=== PATIENT | male | born 1950 | race African-American/Black ===

== ENCOUNTER 2016-12-10 09:23 | Emergency (ER) | payer BC, MEDICARE, OTHER ==
[~2016-12-10] VITALS: Ht 185.4 cm; Wt 96.6 kg
[~2016-12-10 09:23] MED LIST: AMLO1TAB95 PO; ASPI-482 PO; ATOR20TA58 PO; FISH1CAP PO; SAXA1TBM3 PO
[2016-12-10 09:36] VITALS: BP 150/88
--- NOTE | 2016-12-10 10:09 | PHYS DOC ---
Past Medical History Past Medical History: Diabetes-Type II, High Cholesterol, Hypertension, Other Additional Past Medical Histor: back pain Past Surgical History: Other Additional Past Surgical Histo: prostate Alcohol Use: Occasionally Drug Use: None Adult General Chief Complaint Chief Complaint: FINGER INJURY HPI HPI Patient is a 66 year old male who presents with pain to his middle finger. Patient states that his pain has been present for the past 3 days. Patient states that he was carrying groceries and felt his middle finger been back slightly resulting in a pop. Patient states that since the injury he has been noticing a popping sensation in his middle finger. Patient states that he has been able to flex the finger and extend it. Patient has noticed swelling to the finger. Patient denies any other injuries. Patient states at rest he has no pain , however with movement his pain gets up to 9 out of 10. Review of Systems Review of Systems Constitutional: Denies fever or chills [] HENT: Denies nasal congestion or sore throat [] Respiratory: Denies cough or shortness of breath [] Musculoskeletal: Middle finger pain [] Integument: Denies rash or skin lesions [] Neurologic: Denies headache, focal weakness or sensory changes [] Allergies Allergies Allergies Coded Allergies Type Severity Reaction Last Updated Verified No Known Drug Allergies 03/12/15 No Physical Exam Physical Exam Constitutional: Well developed, well nourished, no acute distress, non-toxic appearance. [] HENT: Normocephalic, atraumatic, bilateral external ears normal, oropharynx moist, no oral exudates, nose normal. [] Lungs & Thorax: Bilateral breath sounds clear to auscultation [] Skin: Warm, dry, no erythema, no rash. [] Extremities: Moderate soft tissue swelling to right middle finger, tenderness palpation over 3rd PIP joint, full range of motion present, capillary refill less than 2 seconds, sensation intact. [] Neurologic: Alert and oriented X 3, normal motor function, normal sensory function, no focal deficits noted. [] Current Patient Data Vital Signs Vital Signs Date Time Temp Pulse Resp B/P Pulse Ox O2 Delivery O2 Flow Rate FiO2 12/10/16 09:36 97.7 86 18 96 Room Air 97.7 EKG EKG Not performed [] Radiology/Procedures Radiology/Procedures [facility] [address] [place], [place] [id number] IMAGING REPORT Signed PATIENT: DANIEL PAULSON ACCOUNT: [id number] : 1950 LOCATION: ER AGE: 66 SEX: M EXAM STATUS: PRE ER ORD. PHYSICIAN: OXANA KRISHNAMURTHY MD REASON: middle finger injury to right hand PROCEDURE: FINGER(S) RIGHT EXAM: Right third finger, 3 views. HISTORY: Pain and limited mobility. COMPARISON: None. FINDINGS: Frontal, lateral and oblique views of the right lung finger are obtained. There is no fracture, dislocation or subluxation. There is suggestion of soft tissue swelling surrounding the third proximal interphalangeal joint. IMPRESSION: Suggestion of soft tissue swelling surrounding the third proximal individual joint. DICTATED and SIGNED BY: JULIO CÉSAR WHITFIELD MD DATE: 12/10/16 1017 CC: OXANA KRISHNAMURTHY MD; FADIA CARTER MD ~ [] Course & Med Decision Making Course & Med Decision Making Pertinent Labs and Imaging studies reviewed. (See chart for details) Patient's x-rays did not reveal evidence of fracture. The patient's symptoms are consistent with third digit sprain. Recommended use of Tylenol and naproxen [id number] for treatment of symptoms. Encourage range of motion as tolerated and cold compresses as needed for swelling. Advised follow-up with primary doctor in the next 7 days of symptoms are not improving. Patient voiced understanding and in agreement with treatment plan. Dragon Disclaimer Dragon Disclaimer This electronic medical record was generated, in whole or in part, using a voice recognition dictation system. Departure Departure Impression: Primary Impression: Sprain of finger, right Disposition: 01 HOME, SELF-CARE Condition: IMPROVED Referrals: FADIA CARTER MD (PCP) Patient Instructions: Finger Sprain Additional Instructions: Use [id number] Tylenol and naproxen as directed on labeling. Follow-up with your primary doctor in 7 days of symptoms are not improving. Return to the emergency department for any worsening symptoms. Problem Qualifiers Primary Impression: Sprain of finger, right Encounter type: initial encounter Qualified Code: S63.619A - Unspecified sprain of unspecified finger, initial encounter OXANA KRISHNAMURTHY MD Dec 10, 2016 10:09
--- NOTE | 2016-12-10 10:21 | RAD ---
EXAM: Right third finger, 3 views. HISTORY: Pain and limited mobility. COMPARISON: None. FINDINGS: Frontal, lateral and oblique views of the right lung finger are obtained. There is no fracture, dislocation or subluxation. There is suggestion of soft tissue swelling surrounding the third proximal interphalangeal joint. IMPRESSION: Suggestion of soft tissue swelling surrounding the third proximal individual joint.
== END 2016-12-10 10:44 | disposition home or self-care (01) ==
LOC: ER 09:23
DX: S63.612A Unspecified sprain of right middle finger, initial encounter (principal); E11.9 Type 2 diabetes mellitus without complications; E78.00 Pure hypercholesterolemia, unspecified; I10 Essential (primary) hypertension; X58.XXXA Exposure to other specified factors, initial encounter; Y93.89 Activity, other specified; Y92.89 Other specified places as the place of occurrence of the external cause; Y99.8 Other external cause status
CPT/HCPCS: 73140; 99284

== ENCOUNTER 2020-11-30 15:38 | Inpatient (IN) | payer MEDICARE ==
[~2020-11-30] VITALS: Ht 185.4 cm; Wt 101.8 kg
--- NOTE | 2020-11-30 16:00 | PHYS DOC ---
Past Medical History Past Medical History: Diabetes-Type II, GERD, High Cholesterol, Hypertension, Other Additional Past Medical Histor: back pain Past Surgical History: Other Additional Past Surgical Histo: prostate Smoking Status: Never Smoker Alcohol Use: Occasionally Drug Use: None General Adult EDM: Chief Complaint: COUGH HPI: HPI: Patient is a 70 year old man with history of diabetes type 2, hypertension, high cholesterol, acid reflux, who presents to the ED today complaining of cough for 1 month and diarrhea for 5 days. Patient denies any fever but reports the and grandson tested positive for COVID-19 recently. Denies any shortness of breath but appears short of air on arrival to the ED. Denies any chest pain. Review of Systems: Review of Systems: Constitutional: Denies fever or chills. [] Eyes: Denies change in visual acuity. [] HENT: Denies nasal congestion or sore throat. [] Respiratory: Reports cough, denies shortness of breath. [] Cardiovascular: Denies chest pain or edema. [] GI: Reports diarrhea. Denies abdominal pain, nausea, vomiting, bloody stools : Denies dysuria. [] Musculoskeletal: Denies back pain or joint pain. [] Integument: Denies rash. [] Neurologic: Denies headache, focal weakness or sensory changes. [] Endocrine: Denies polyuria or polydipsia. [] Lymphatic: Denies swollen glands. [] Psychiatric: Denies depression or anxiety. [] Heart Score: Risk Factors: Risk Factors: DM, Current or recent (<one month) smoker, HTN, HLP, family history of CAD, obesity. Risk Scores: Score 0 - 3: 2.5% MACE over next 6 weeks - Discharge Home Score 4 - 6: 20.3% MACE over next 6 weeks - Admit for Clinical Observation Score 7 - 10: 72.7% MACE over next 6 weeks - Early Invasive Strategies Allergies: Allergies: Allergies Coded Allergies Type Severity Reaction Last Updated Verified No Known Drug Allergies 03/12/15 No Physical Exam: PE: Constitutional: Well developed, well nourished, no acute distress, non-toxic appearance. [] HENT: Normocephalic, atraumatic, bilateral external ears normal, oropharynx moist, no oral exudates, nose normal. [] Eyes: PERRLA, EOMI, conjunctiva normal, no discharge. [] Neck: Normal range of motion, no tenderness, supple, no stridor. [] Cardiovascular:Heart rate regular rhythm, no murmur [] Lungs & Thorax: Patient is short of air, was put on oxygen. Diminished lung sounds serially. Abdomen: Bowel sounds normal, soft, no tenderness, no masses, no pulsatile melida s. [] Skin: Warm, dry, no erythema, no rash. [] Back: No tenderness, no CVA tenderness. [] Extremities: No tenderness, no cyanosis, no clubbing, ROM intact, no edema. [] Neurologic: Alert and oriented X 3, normal motor function, normal sensory function, no focal deficits noted. [] Psychologic: Affect normal, judgement normal, mood normal. [] EKG: EKG: [] Radiology/Procedures: Radiology/Procedures: []PROCEDURE: PORTABLE CHEST 1V EXAM: Chest, single view. HISTORY: Cough. COMPARISON: None. FINDINGS: A frontal view of the chest is obtained. There is diffuse interstitial infiltrate likely superimposed on chronic interstitial changes. No protrusion or pneumothorax is seen. There is a prominent cardiac silhouette. There are calcified granulomas. IMPRESSION: Diffuse interstitial infiltrate likely superimposed on chronic interstitial changes. Electronically signed by: Sarah Whitfield MD (11/30/2020 4:27 PM) [id number] DICTATED and SIGNED BY: SARAH WHITFIELD MD DATE: 11/30/20 [id number] Course & Med Decision Making: Course & Med Decision Making Pertinent Labs and Imaging studies reviewed. (See chart for details) This is a 70-year-old male patient presenting to the ED today with cough for 1 month and diarrhea for 5 days. Has been exposed to COVID-19, the is positive as well as the grandson. Patient arrives in the ED with O2 sats at 85% on room air, he was put on oxygen 2 L with no improvement put on oxygen 4 L with oxygen now at 92%. Temperature 98.1, heart rate 92, blood pressure 127/83, respiration 26 CBC with no acute findings, CMP with creatinine of 2.0, BUN is normal. Chest x-ray interpreted by radiologist was noted for diffuse interstitial infiltrate likely superimposed on chronic interstitial changes. Patient was tested for COVID-19 Patient was given Decadron, Rocephin, and azithromycin. Spoke to Dr. Dela Cruz who accepted patient for admission. Routine consult placed for pulmonary Dragon Disclaimer: Alo Disclaimer: This electronic medical record was generated, in whole or in part, using a voice recognition dictation system. Departure Departure Impression: Primary Impression: Pneumonia of both lower lobes Qualified Codes: J18.9 - Pneumonia, unspecified organism Additional Impressions: Acute respiratory failure Qualified Codes: J96.01 - Acute respiratory failure with hypoxia Person under investigation for COVID-19 Diarrhea Qualified Codes: R19.7 - Diarrhea, unspecified Acute renal failure Qualified Codes: N17.9 - Acute kidney failure, unspecified Disposition: 09 ADMITTED INPT THIS HOSP Condition: STABLE Referrals: FADIA CARTER MD (PCP) MEGAN DE LA ROSA APRN Nov 30, 2020 16:00
[2020-11-30 16:17] LABS: BASO # 0.1 x10^3/uL (0.0-0.2); BASO % 1 % (0-3); EOS % 0 % (0-3); HEMOGLOBIN 14.1 g/dL (13.0-17.5); LYMPH # 1.5 x10^3/uL (1.0-4.8); LYMPH % 27 % (24-48); MEAN CORPUSCULAR HEMOGLOBIN 27 pg (25-35); MEAN CORPUSCULAR HGB CONC 34 g/dL (31-37); MEAN CORPUSCULAR VOLUME 82 fL (79-100); MONO # 0.7 x10^3/uL (0.0-1.1); MONO % 13 % (0-9); NEUT # 3.3 x10^3/uL (1.8-7.7); NEUT % 59 % (31-73); PLATELET COUNT 241 x10^3/uL (140-400); RED BLOOD COUNT 5.14 x10^6/uL (4.30-5.70); RED CELL DISTRIBUTION WIDTH 14.6 % (11.5-14.5); WHITE BLOOD COUNT 5.7 x10^3/uL (4.0-11.0)
[2020-11-30 16:27] LABS: CALCIUM 8.6 mg/dL (8.5-10.1); GFR 39.9; POTASSIUM 3.4 mmol/L (3.5-5.1)
--- NOTE | 2020-11-30 16:29 | RAD ---
EXAM: Chest, single view. HISTORY: Cough. COMPARISON: None. FINDINGS: A frontal view of the chest is obtained. There is diffuse interstitial infiltrate likely weinstein perimposed on chronic interstitial changes. No protrusion or pneumothorax is seen. There is a promine nt cardiac silhouette. There are calcified granulomas. IMPRESSION: Diffuse interstitial infiltrate likely superimposed on chronic interstitial changes. Electronically signed by: Sarah Santo MD (11/30/2020 4:27 PM) [id number]
[2020-11-30 16:32] LABS: ALBUMIN 2.5 g/dL (3.4-5.0); ALBUMIN/GLOBULIN RATIO 0.5 (1.0-1.7); MAGNESIUM 2.4 mg/dL (1.8-2.4); TOTAL BILIRUBIN 0.4 mg/dL (0.2-1.0); TOTAL PROTEIN 7.3 g/dL (6.4-8.2)
[2020-11-30] MEDS ORDERED: DEXAMETHASONE SOD PHOS 20 MG/5 ML VIAL. IV ONE (17:45)
[2020-11-30] MEDS ORDERED: AZITHRMYCN 500MG IVPB FOR OMNI 250 ML IV ONE (17:45)
[2020-11-30] MEDS ORDERED: cefTRIAXone IV Push 1 GM VIAL. IVP ONE (17:45)
[2020-11-30] MEDS ORDERED: DOCUSATE SODIUM 100 MG CAPSULE. PO PRN (22:00)
[2020-11-30] MEDS ORDERED: ACETAMINOPHEN 325 MG TABLET. PO PRN ×2 (22:00→23:15)
[2020-11-30] MEDS ORDERED: DEXTROSE 50% 25 GM / 50ML DISP.SYRIN. IV PRN (22:00)
[2020-11-30] MEDS ORDERED: ONDANSETRON PF 4 MG/2 ML VIAL. IV PRN ×2 (22:00→23:15)
[2020-11-30] MEDS: HEPARIN for SUB-Q USE 5,000 UNIT/ML VIAL. SQ SCH (22:33)
[2020-11-30] MEDS: guaiFENesin DM 200MG/20MG 10 ML SYRUP PO PRN (22:42)
[2020-11-30] MEDS ORDERED: INSULIN GLARGINE SYRINGE. SQ SCH (23:00)
[2020-11-30] MEDS ORDERED: MORPHINE SULFATE 2 MG/ML VIAL. IV PRN (23:15)
[2020-11-30 23:50] LABS: BILIRUBIN,URINE NEGATIVE (NEG); CLARITY,URINE CLEAR; COLOR,URINE YELLOW; NITRITE,URINE NEGATIVE (NEG); PROTEIN,URINE >=300 mg/dL (NEG-TRACE); UROBILINOGEN,URINE 0.2 mg/dL (0.2 mg/dL)
[2020-11-30 23:56] LABS: AMPHETAMINE/METHAMPHETAMINE NEG (NEG); BARBITURATES NEG (NEG); BENZODIAZEPINES NEG (NEG); CANNABINOIDS NEG (NEG); COCAINE NEG (NEG); METHADONE NEG (NEG); OPIATES NEG (NEG); PHENCYCLIDINE NEG (NEG)
[2020-12-01] VITALS (7 sets, daily range): BP systolic 104–143; BP diastolic 59–84
[2020-12-01 00:08] LABS: BACTERIA,URINE 0 /HPF (0-FEW); HYALINE CASTS, URINE FEW /HPF; RBC,URINE OCC /HPF (0-2); WBC,URINE OCC /HPF (0-4)
[2020-12-01] MEDS ORDERED: LATA2.5D2 EACHEYE (03:43)
[2020-12-01] MEDS ORDERED: FAMO40TA4 PO (03:43)
[2020-12-01] MEDS ORDERED: PHEN1CAP PO (03:43)
[2020-12-01] MEDS ORDERED: FLUT16SP NS (03:43)
[2020-12-01] MEDS ORDERED: BENZ-8 PO (03:43)
[2020-12-01] MEDS ORDERED: VENTOLIN HFA18 GM INH (03:43)
[2020-12-01] MEDS ORDERED: AMLO-187 PO (03:43)
[2020-12-01] MEDS ORDERED: LOSA100T14 PO (03:43)
[2020-12-01] MEDS ORDERED: PIOG15TA42 PO (03:43)
[2020-12-01] MEDS ORDERED: C.DIFF MED SCREEN BY RX. MC ONE (04:15)
--- NOTE | 2020-12-01 05:14 | EKG ---
[facility] [address] [place] [address] Test Date: 2020-11-30 Test Time: 15:51:41 Pat Name: DANIEL PAULSON Department: Room: Gender: M Machine Sneller: : 1950 Requested By: MEGAN DE LA ROSA Order Number: [id number] Reading MD: Measurements Intervals [place] Rate: 89 P: 4 MI: 180 QRS: 138 QRSD: 132 T: 26 QT: 408 QTc: 498 Interpretive Statements SINUS RHYTHM RIGHT BUNDLE BRANCH BLOCK RVH WITH REPOLARIZATION ABNORMALITY ABNORMAL ECG RI6.02 No previous ECG available for comparison
[2020-12-01] MEDS: HEPARIN for SUB-Q USE 5,000 UNIT/ML VIAL. SQ SCH (05:53)
[2020-12-01] MEDS: DEXAMETHASONE SOD PHOS 4 MG/ML VIAL IVP SCH (05:56)
[2020-12-01] MEDS ORDERED: ONDANSETRON PF 4 MG/2 ML VIAL. IVP PRN (07:45)
[2020-12-01] MEDS ORDERED: BISACODYL 10 MG SUPP.RECT. PR PRN (07:45)
[2020-12-01] MEDS ORDERED: CALCIUM CARBONATE 500 MG TAB.CHEW PO PRN (07:45)
[2020-12-01] MEDS ORDERED: MAG HYDROX/ALUMINUM HYD/SIMETH 30 ML ORAL.SUSP PO PRN (07:45)
[2020-12-01] MEDS ORDERED: MAGNESIUM HYDROXIDE 2,400 MG/30 ML ORAL.SUSP. PO PRN (07:45)
[2020-12-01] MEDS ORDERED: ACETAMINOPHEN 325 MG TABLET. PO PRN (07:45)
--- NOTE | 2020-12-01 07:58 | PDOC1 ---
History and Physical Date of Admission Date of Admission DATE: 12/01/20 TIME: 07:24 Identification/Chief Complaint Chief Complaint Cough Source Source: Chart review, Patient History of Present Illness History of Present Illness Patient 68-year-old male with past medical history of type 2 diabetes presents to the ER with complaints of nonproductive cough over the past month. He reports associated nausea, vomiting, and diarrhea over the past 5 days. He does note his is COVID-19 positive at home. Upon arrival in the ER his O2 saturation was 85% on room air. He was placed on 4 L nasal cannula with improvement. Will make patient further medical management Past Medical History Cardiovascular: HTN, Hyperlipidemia Pulmonary: No pertinent hx Heme/Onc: Cancer Hepatobiliary: No pertinent hx Psych: No pertinent hx Rheumatologic: No pertinent hx Infectious disease: No pertinent hx Renal/: No pertinent hx Endocrine: Diabetes Past Surgical History Past Surgical History: Other (Prostate) Family History Family History: Cancer Social History Smoke: No ALCOHOL: occassional Drugs: None Current Problem List Problem List Problems Medical Problems: (1) Acute renal failure Status: Acute (2) Acute respiratory failure Status: Acute (3) Diarrhea Status: Acute (4) Person under investigation for COVID-19 Status: Acute (5) Pneumonia of both lower lobes Status: Acute Current Medications Current Medications Current Medications Dexamethasone Sodium Phosphate (Decadron) 10 mg 1X ONCE IV Last administered on 11/30/20at 19:22; Start 11/30/20 at 17:45; Stop 11/30/20 at 17:46; Status DC Ceftriaxone Sodium (Rocephin) 1 gm 1X ONCE IVP Last administered on 11/30/20at 19:22; Start 11/30/20 at 17:45; Stop 11/30/20 at 17:46; Status DC Azithromycin 250 ml @ 250 mls/hr 1X ONCE IV Last administered on 11/30/20at 19:22; Start 11/30/20 at 17:45; Stop 11/30/20 at 18:44; Status DC Insulin Glargine (Lantus Syringe) 10 unit QHS SQ Last administered on 11/30/20at 22:33; Start 11/30/20 at 23:00 Insulin Human Lispro (HumaLOG) 0-9 UNITS TIDWMEALS SQ ; Start 12/01/20 at 08:00 Dextrose (Dextrose 50%-Water Syringe) 12.5 gm PRN Q15MIN PRN IV SEE COMMENTS; Start 11/30/20 at 22:00 Aspirin (Ecotrin) 81 mg DAILY PO ; Start 12/01/20 at 09:00 Atorvastatin Calcium (Lipitor) 20 mg DAILY PO ; Start 12/01/20 at 09:00 Dexamethasone Sodium Phosphate (Decadron) 6 mg DAILY07 IVP Last administered on 12/01/20at 05:56; Start 12/01/20 at 07:00 Guaifenesin (Robitussin Dm) 10 ml PRN Q6HRS PRN PO COUGH 1ST CHOICE Last administered on 11/30/20at 22:42; Start 11/30/20 at 22:00 Ondansetron HCl (Zofran) 4 mg PRN Q4HRS PRN IV NAUSEA/VOMITING 1ST CHOICE; Start 11/30/20 at 22:00 Acetaminophen (Tylenol) 650 mg PRN Q4HRS PRN PO TEMP OVER 100.4F OR MILD PAIN; Start 11/30/20 at 22:00 Docusate Sodium (Colace) 100 mg PRN BID PRN PO HARD STOOLS; Start 11/30/20 at 22:00 Psyllium Hydrophilic Mucilloid (Metamucil Fiber Packet) 1 pkt QHS PO ; Start 12/01/20 at 21:00 Olanzapine (ZyPREXA ZYDIS) 5 mg PRN BID PRN PO ANXIETY / AGITATION; Start 11/30/20 at 22:00 Heparin Sodium (Porcine) (Heparin Sodium) 5,000 unit Q8HRS SQ Last administered on 12/01/20at 05:53; Start 11/30/20 at 22:00 Ondansetron HCl (Zofran) 4 mg PRN Q8HRS PRN IV NAUSEA/VOMITING; Start 11/30/20 at 23:15; Stop 12/01/20 at 23:14; Status UNV Morphine Sulfate (Morphine Sulfate) 2 mg PRN Q2HR PRN IV SEVERE PAIN 7-10; Start 11/30/20 at 23:15; Stop 12/01/20 at 23:14 Acetaminophen (Tylenol) 650 mg PRN Q4HRS PRN PO FEVER > 100.3'F; Start 11/30/20 at 23:15; Stop 12/01/20 at 23:14; Status UNV Pharmacy Consult (C.diff Med Screen By Rx) 1 each 1X ONCE [facility] ; Start 12/01/20 at 04:15; Stop 12/01/20 at 04:16; Status DC Active Scripts Active Reported Ventolin Hfa Inhaler (Albuterol Sulfate) 18 Gm Hfa.aer.ad 2 Puff INH Q4HRS Fluticasone Propionate Nasal [place] (Fluticasone Propionate) 16 Gm [place].susp 2 [place] NS DAILY Benzonatate 100 Mg Capsule 1 Cap PO TID Xalatan (Latanoprost) 2.5 Ml Drops 1 Drop EACHEYE QHS Mucinex Fast-Max Flrm-Ksk-Kltw (Phenylephrine/Dm/Acetaminop/GG) 1 Each Capsule 1 Cap PO BID 10 Days Famotidine 40 Mg Tablet 40 Mg PO HS Actos (Pioglitazone Hcl) 15 Mg Tablet 1 Tab PO DAILY 30 Days Losartan Potassium 100 Mg Tablet 100 Mg PO DAILY Amlodipine Besylate 10 Mg Tablet 10 Mg PO DAILY Fish Oil 1,200 Mg Fish Oil (Fish Oil/Dha/Epa) 1 Each Capsule 1 Each PO Aspir 81 (Aspirin) 81 Mg Tablet.dr 1 Tab PO DAILY Atorvastatin Calcium 20 Mg Tablet 1 Tab PO DAILY Kombiglyze Xr 5-1,000 Mg Tab (Saxagliptin Hcl/Metformin Hcl) 1 Each Tbmp.24hr 1 Tab PO DAILY Allergies Allergies: Coded Allergies: No Known Drug Allergies (Unverified , 03/12/15) ROS Review of System GENERAL: No history of weight change, weakness or fevers. SKIN: No bruising, hair changes or rashes. EYES: No blurred, double or loss of vision. NOSE AND THROAT: No history of nosebleeds, hoarseness or sore throat. HEART: Denies chest pain, denies palpitations. LUNGS: Cough. Denies hemoptysis, wheezing or shortness of breath. GASTROINTESTINAL: Nausea, vomiting, diarrhea. Denies abdominal pain. GENITOURINARY: Denies dysuria, frequency, urgency, hematuria. NEUROLOGIC: Denies history of numbness, tingling, tremor or weakness. PSYCHIATRIC: Denies anxiety, denies depression. ENDOCRINE: No history of heat or cold intolerance, polyuria or polydipsia. EXTREMITIES: Denies muscle weakness, joint pain, pain on walking or stiffness. Physical Exam Physical Exam General: Alert, Oriented X3, Cooperative, No acute distress HEENT: PERRLA, EOMI Lungs: Decreased breath sounds, no excessive work of breathing Heart: RRR, no murmurs Cardiovascular: S1, S2 Abdomen: Normal bowel sounds, Soft, No tenderness Extremities: No clubbing, No cyanosis Skin: No rashes, No significant lesion Neuro: Normal speech, Normal tone, Sensation intact Psych/Mental Status: Mental status NL, Mood NL Vitals Vitals Vital Signs Date Time Temp Pulse Resp B/P (MAP) Pulse Ox O2 Delivery O2 Flow Rate FiO2 12/01/20 03:47 Nasal Cannula 4.0 12/01/20 03:00 97.3 81 24 131/78 (95) 94 97.3 Labs Labs Laboratory Tests Test 11/30/20 16:00 11/30/20 19:20 11/30/20 22:29 11/30/20 22:30 White Blood Count 5.7 x10^3/uL (4.0-11.0) Red Blood Count 5.14 x10^6/uL (4.30-5.70) Hemoglobin 14.1 g/dL (13.0-17.5) Hematocrit 42.0 % (39.0-53.0) Mean Corpuscular Volume 82 fL (79-100) Mean Corpuscular Hemoglobin 27 pg (25-35) Mean Corpuscular Hemoglobin Concent 34 g/dL (31-37) Red Cell Distribution Width 14.6 % (11.5-14.5) Platelet Count 241 x10^3/uL (140-400) Neutrophils (%) (Auto) 59 % (31-73) Lymphocytes (%) (Auto) 27 % (24-48) Monocytes (%) (Auto) 13 % (0-9) Eosinophils (%) (Auto) 0 % (0-3) Basophils (%) (Auto) 1 % (0-3) Neutrophils # (Auto) 3.3 x10^3/uL (1.8-7.7) Lymphocytes # (Auto) 1.5 x10^3/uL (1.0-4.8) Monocytes # (Auto) 0.7 x10^3/uL (0.0-1.1) Eosinophils # (Auto) 0.0 x10^3/uL (0.0-0.7) Basophils # (Auto) 0.1 x10^3/uL (0.0-0.2) Sodium Level 136 mmol/L (136-145) Potassium Level 3.4 mmol/L (3.5-5.1) Chloride Level 102 mmol/L (98-107) Carbon Dioxide Level 23 mmol/L (21-32) Anion Gap 11 (6-14) Blood Urea Nitrogen 21 mg/dL (8-26) Creatinine 2.0 mg/dL (0.7-1.3) Estimated GFR (Cockcroft-Gault) 39.9 BUN/Creatinine Ratio 11 (6-20) Glucose Level 198 mg/dL (70-99) Lactic Acid Level 1.2 mmol/L (0.4-2.0) Calcium Level 8.6 mg/dL (8.5-10.1) Magnesium Level 2.4 mg/dL (1.8-2.4) Total Bilirubin 0.4 mg/dL (0.2-1.0) Aspartate Amino Transf (AST/SGOT) 43 U/L (15-37) Alanine Aminotransferase (ALT/SGPT) 29 U/L (16-63) Alkaline Phosphatase 75 U/L (46-116) Troponin I Quantitative < 0.017 ng/mL (0.000-0.055) < 0.017 ng/mL (0.000-0.055) < 0.017 ng/mL (0.000-0.055) OS-Ioh-M-Type Natriuretic Peptide 45 pg/mL (0-124) Total Protein 7.3 g/dL (6.4-8.2) Albumin 2.5 g/dL (3.4-5.0) Albumin/Globulin Ratio 0.5 (1.0-1.7) Procalcitonin < 0.10 ng/mL (0.00-0.10) Thyroid Stimulating Hormone (TSH) 1.992 uIU/mL (0.358-3.74) Glucose (Fingerstick) 257 mg/dL (70-99) Test 11/30/20 23:40 Urine Collection Type Unknown Urine Color Yellow Urine Clarity Clear Urine pH 6.0 (<5.0-8.0) Urine Specific [place] 1.025 (1.000-1.030) Urine Protein >=300 mg/dL (NEG-TRACE) Urine Glucose (UA) 100 mg/dL (NEG) Urine Ketones (Stick) Negative mg/dL (NEG) Urine Blood Large (NEG) Urine Nitrite Negative (NEG) Urine Bilirubin Negative (NEG) Urine Urobilinogen Dipstick 0.2 mg/dL (0.2 mg/dL) Urine Leukocyte Esterase Negative (NEG) Urine RBC Occ /HPF (0-2) Urine WBC Occ /HPF (0-4) Urine Squamous Epithelial Cells Few /LPF Urine Bacteria 0 /HPF (0-FEW) Urine Hyaline Casts Few /HPF Urine Mucus Slight /LPF Urine Opiates Screen Neg (NEG) Urine Methadone Screen Neg (NEG) Urine Barbiturates Neg (NEG) Urine Phencyclidine Screen Neg (NEG) Urine Amphetamine/Methamphetamine Neg (NEG) Urine Benzodiazepines Screen Neg (NEG) Urine Cocaine Screen Neg (NEG) Urine Cannabinoids Screen Neg (NEG) Urine Ethyl Alcohol Neg (NEG) Laboratory Tests Test 11/30/20 16:00 11/30/20 19:20 11/30/20 22:29 11/30/20 22:30 White Blood Count 5.7 x10^3/uL (4.0-11.0) Red Blood Count 5.14 x10^6/uL (4.30-5.70) Hemoglobin 14.1 g/dL (13.0-17.5) Hematocrit 42.0 % (39.0-53.0) Mean Corpuscular Volume 82 fL (79-100) Mean Corpuscular Hemoglobin 27 pg (25-35) Mean Corpuscular Hemoglobin Concent 34 g/dL (31-37) Red Cell Distribution Width 14.6 % (11.5-14.5) Platelet Count 241 x10^3/uL (140-400) Neutrophils (%) (Auto) 59 % (31-73) Lymphocytes (%) (Auto) 27 % (24-48) Monocytes (%) (Auto) 13 % (0-9) Eosinophils (%) (Auto) 0 % (0-3) Basophils (%) (Auto) 1 % (0-3) Neutrophils # (Auto) 3.3 x10^3/uL (1.8-7.7) Lymphocytes # (Auto) 1.5 x10^3/uL (1.0-4.8) Monocytes # (Auto) 0.7 x10^3/uL (0.0-1.1) Eosinophils # (Auto) 0.0 x10^3/uL (0.0-0.7) Basophils # (Auto) 0.1 x10^3/uL (0.0-0.2) Sodium Level 136 mmol/L (136-145) Potassium Level 3.4 mmol/L (3.5-5.1) Chloride Level 102 mmol/L (98-107) Carbon Dioxide Level 23 mmol/L (21-32) Anion Gap 11 (6-14) Blood Urea Nitrogen 21 mg/dL (8-26) Creatinine 2.0 mg/dL (0.7-1.3) Estimated GFR (Cockcroft-Gault) 39.9 BUN/Creatinine Ratio 11 (6-20) Glucose Level 198 mg/dL (70-99) Lactic Acid Level 1.2 mmol/L (0.4-2.0) Calcium Level 8.6 mg/dL (8.5-10.1) Magnesium Level 2.4 mg/dL (1.8-2.4) Total Bilirubin 0.4 mg/dL (0.2-1.0) Aspartate Amino Transf (AST/SGOT) 43 U/L (15-37) Alanine Aminotransferase (ALT/SGPT) 29 U/L (16-63) Alkaline Phosphatase 75 U/L (46-116) Troponin I Quantitative < 0.017 ng/mL (0.000-0.055) < 0.017 ng/mL (0.000-0.055) < 0.017 ng/mL (0.000-0.055) RC-Zim-Z-Type Natriuretic Peptide 45 pg/mL (0-124) Total Protein 7.3 g/dL (6.4-8.2) Albumin 2.5 g/dL (3.4-5.0) Albumin/Globulin Ratio 0.5 (1.0-1.7) Procalcitonin < 0.10 ng/mL (0.00-0.10) Thyroid Stimulating Hormone (TSH) 1.992 uIU/mL (0.358-3.74) Glucose (Fingerstick) 257 mg/dL (70-99) Test 11/30/20 23:40 Urine Collection Type Unknown Urine Color Yellow Urine Clarity Clear Urine pH 6.0 (<5.0-8.0) Urine Specific [place] 1.025 (1.000-1.030) Urine Protein >=300 mg/dL (NEG-TRACE) Urine Glucose (UA) 100 mg/dL (NEG) Urine Ketones (Stick) Negative mg/dL (NEG) Urine Blood Large (NEG) Urine Nitrite Negative (NEG) Urine Bilirubin Negative (NEG) Urine Urobilinogen Dipstick 0.2 mg/dL (0.2 mg/dL) Urine Leukocyte Esterase Negative (NEG) Urine RBC Occ /HPF (0-2) Urine WBC Occ /HPF (0-4) Urine Squamous Epithelial Cells Few /LPF Urine Bacteria 0 /HPF (0-FEW) Urine Hyaline Casts Few /HPF Urine Mucus Slight /LPF Urine Opiates Screen Neg (NEG) Urine Methadone Screen Neg (NEG) Urine Barbiturates Neg (NEG) Urine Phencyclidine Screen Neg (NEG) Urine Amphetamine/Methamphetamine Neg (NEG) Urine Benzodiazepines Screen Neg (NEG) Urine Cocaine Screen Neg (NEG) Urine Cannabinoids Screen Neg (NEG) Urine Ethyl Alcohol Neg (NEG) Images Images PORTABLE CHEST 1V EXAM: Chest, single view. HISTORY: Cough. COMPARISON: None. FINDINGS: A frontal view of the chest is obtained. There is diffuse interstitial infiltrate likely superimposed on chronic interstitial changes. No protrusion or pneumothorax is seen. There is a prominent cardiac silhouette. There are calcified granulomas. IMPRESSION: Diffuse interstitial infiltrate likely superimposed on chronic interstitial changes. VTE Prophylaxis Ordered VTE Prophylaxis Devices: No VTE Pharmacological Prophylaxi: Yes Assessment/Plan Assessment/Plan Acute respiratory failure with hypoxia COVID-19 PUI DM2 hyperglycemia RORO Vasomotor nephropathy Severe malnutrition Plan: Will admit patient with pulmonology consult Chest x-ray admission showed diffuse interstitial infiltrates; will treat with Rocephin and doxycycline COVID-19 test pending; will treat with IV steroids supportive care If COVID-19 is positive, will initiate treatment with remdesivir Basal/prandial insulin; A1c pending Resume home medications FEN - ADA diet PPX - Lovenox FULL CODE Dispo - inpatient for above Justifications for Admission Other Justification ASUNCION GONZALEZ MD Dec 01, 2020 07:58
[2020-12-01] MEDS: ASPIRIN ENTERIC COATED 81 MG TABLET.DR. PO SCH (08:05)
[2020-12-01] MEDS: guaiFENesin DM 200MG/20MG 10 ML SYRUP PO PRN ×2 (08:05→21:20)
[2020-12-01] MEDS: ZINC SULFATE 220 MG CAPSULE. PO SCH (08:05)
[2020-12-01] MEDS: BENZONATATE 100 MG CAPSULE. PO PRN ×2 (08:05→21:20)
[2020-12-01] MEDS: INSULIN LISPRO 300 UNITS/3 ML VIAL. SQ SCH ×5 (08:08→18:34)
[2020-12-01] MEDS: AZITHROMYCIN 250 MG TABLET. PO SCH (08:09)
--- NOTE | 2020-12-01 08:30 | CONS ---
DATE OF CONSULTATION: 12/01/2020 PULMONARY CONSULTATION ATTENDING PHYSICIAN: Von Dela Cruz MD REASON FOR CONSULTATION: Respiratory failure. HISTORY OF PRESENT ILLNESS: The patient is a 70-year-old male with a BMI of 29.6. He has no significant tobacco history. He has a history of type 2 diabetes, hypertension, dyslipidemia and acid reflux. He was brought into the hospital with 1-month history of a cough, which has been nonproductive. He also has some diarrhea for 5 days. No obvious fever. The patient reports that his and grandson tested positive for COVID-19 recently. The patient denies any chest pain. No history of deep vein thrombosis or pulmonary embolism. A chest x-ray was reviewed and shows bilateral interstitial infiltrates. There was no old x-ray available for comparison. The patient is currently requiring 4 liters of oxygen, saturations are in the high 80s to low 90s. PAST MEDICAL HISTORY: Significant for type 2 diabetes, GERD, dyslipidemia, hypertension and chronic back pain. PAST SURGICAL HISTORY: Surgeries for prostate. SOCIAL HISTORY: Nonsmoker. ALLERGIES: None. MEDICATIONS: Reviewed as listed in the MRAD including empiric antibiotics and dexamethasone. REVIEW OF SYSTEMS: The 10-point system obtained. Pertinent positives discussed in my history of present illness, otherwise noncontributory. All systems that were negative were reviewed as well. FAMILY HISTORY: Noncontributory to lungs. PHYSICAL EXAMINATION: His vital signs were reviewed. He is afebrile. Pulse ox is 89-94% on 4 liters. Visual exam done due to COVID-19 suspicion. No obvious respiratory distress. No paradoxical breathing. No skin rash. No leg edema. LABORATORY DATA: Reviewed. White cell count 5.7, hemoglobin 14.1 and platelets are 241. TSH 1.9. Urine drug screen is negative. IMPRESSION: 1. Persistent nonproductive cough for the past 1 month with bilateral diffuse interstitial infiltrates. No old x-ray available for comparison. He also has hypoxic respiratory failure. The etiology of his symptoms can be multifactorial and includes. A. Rule out COVID-19 viral pneumonia. B. Cannot exclude the possibility of chronic interstitial lung disease. C. Atypical bacterial infection such as mycoplasma since he had diarrhea as well. 2. No significant tobacco history. 3. Abnormal chest x-ray with bilateral interstitial infiltrates. RECOMMENDATIONS: 1. Continue present oxygen to keep saturation 92 and above. 2. Continue empiric antibiotics. 3. Rule out COVID infection. 4. Continue steroids. 5. DVT prophylaxis with Lovenox. 6. The patient is not on any EDGAR inhibitors. 7. If COVID ruled out, then we will do a noncontrast CT chest to assess for any interstitial lung disease. 8. We will add a steroid inhaler to see an improvement in the cough. 9. Discussed with RN. We will follow along with you. CECILIA TIDWELL MD DR: HEIDI/divina JOB#: [id number] / [id number]
[2020-12-01] MEDS ORDERED: ATORVASTATIN CALCIUM 20 MG TABLET PO SCH (09:00)
[2020-12-01 09:39] LABS: BASO % 1 % (0-3); EOS % 0 % (0-3); HEMATOCRIT 41.4 % (39.0-53.0); HEMOGLOBIN 13.6 g/dL (13.0-17.5); LYMPH # 0.8 x10^3/uL (1.0-4.8); LYMPH % 24 % (24-48); MEAN CORPUSCULAR HEMOGLOBIN 27 pg (25-35); MEAN CORPUSCULAR HGB CONC 33 g/dL (31-37); MEAN CORPUSCULAR VOLUME 82 fL (79-100); MONO # 0.3 x10^3/uL (0.0-1.1); MONO % 9 % (0-9); NEUT # 2.2 x10^3/uL (1.8-7.7); NEUT % 67 % (31-73); PLATELET COUNT 269 x10^3/uL (140-400); RED BLOOD COUNT 5.08 x10^6/uL (4.30-5.70); RED CELL DISTRIBUTION WIDTH 14.4 % (11.5-14.5); WHITE BLOOD COUNT 3.3 x10^3/uL (4.0-11.0)
[2020-12-01 09:45] LABS: ALBUMIN 2.1 g/dL (3.4-5.0); ALBUMIN/GLOBULIN RATIO 0.4 (1.0-1.7); CALCIUM 8.5 mg/dL (8.5-10.1); CREATININE 1.9 mg/dL (0.7-1.3); GFR 42.4; POTASSIUM 3.9 mmol/L (3.5-5.1); TOTAL BILIRUBIN 0.3 mg/dL (0.2-1.0); TOTAL PROTEIN 6.8 g/dL (6.4-8.2)
[2020-12-01] MEDS: FLUTICASONE/VILANTEROL 100/25 INHALER. INH SCH (10:36)
[2020-12-01] MEDS: cefTRIAXone IV Push 1 GM VIAL. IVP SCH (10:37)
--- NOTE | 2020-12-01 12:56 | NUR ---
SW following for discharge planning. Spoke with RN and reviewed chart. Pt currently on 4l 02, COVID pending, cardiac diet. JARED called and spoke with pt. Pt from home with and grandson. Pt does not have home 02. PT/OT to evaluate. SW following.
[2020-12-01] MEDS ORDERED: IV NORMAL SALINE 500ML BAG 500 ML IV ONE (13:00)
[2020-12-01] MEDS ORDERED: INSULIN LISPRO 300 UNITS/3 ML VIAL. SQ ONE (13:00)
[2020-12-01] MEDS: PSYLLIUM HUSK (SUGAR FREE) 1 PKT PACKET PO SCH (21:19)
[2020-12-01] MEDS: LACTOBACILLUS RHAMNOSUS GG 1 CAPSULE. PO SCH (21:19)
[2020-12-01] MEDS: ENOXAPARIN 40 MG/0.4 ML SYRINGE. SQ SCH (21:19)
[2020-12-01] MEDS: INSULIN GLARGINE SYRINGE. SQ SCH (21:52)
[2020-12-02 02:55] VITALS: BP 133/64
[2020-12-02] MEDS: DEXAMETHASONE SOD PHOS 4 MG/ML VIAL IVP SCH (06:23)
[2020-12-02 07:54] VITALS: BP 123/60
[2020-12-02] MEDS: BENZONATATE 100 MG CAPSULE. PO PRN ×2 (07:56→17:07)
[2020-12-02] MEDS: FLUTICASONE/VILANTEROL 100/25 INHALER. INH SCH (07:56)
[2020-12-02] MEDS: guaiFENesin DM 200MG/20MG 10 ML SYRUP PO PRN ×2 (07:56→17:08)
[2020-12-02] MEDS: ASPIRIN ENTERIC COATED 81 MG TABLET.DR. PO SCH (07:57)
[2020-12-02] MEDS: cefTRIAXone IV Push 1 GM VIAL. IVP SCH (07:57)
[2020-12-02] MEDS: AZITHROMYCIN 250 MG TABLET. PO SCH (07:57)
[2020-12-02] MEDS: ZINC SULFATE 220 MG CAPSULE. PO SCH (07:57)
[2020-12-02] MEDS: LACTOBACILLUS RHAMNOSUS GG 1 CAPSULE. PO SCH ×2 (07:57→19:42)
[2020-12-02] MEDS: INSULIN LISPRO 300 UNITS/3 ML VIAL. SQ SCH ×6 (08:00→17:02)
[2020-12-02 09:16] LABS: ALBUMIN 2.1 g/dL (3.4-5.0); ALBUMIN/GLOBULIN RATIO 0.5 (1.0-1.7); CALCIUM 8.2 mg/dL (8.5-10.1); CREATININE 2.1 mg/dL (0.7-1.3); GFR 37.8; POTASSIUM 3.8 mmol/L (3.5-5.1); TOTAL BILIRUBIN 0.3 mg/dL (0.2-1.0)
[2020-12-02 11:16] VITALS: BP 120/70
--- NOTE | 2020-12-02 12:10 | PDOC ---
PULMONARY PROGRESS NOTES DATE: 12/02/20 TIME: 12:08 Subjective mild cough no soa Vitals Vital Signs Date Time Temp Pulse Resp B/P (MAP) Pulse Ox O2 Delivery O2 Flow Rate FiO2 12/02/20 11:16 97.5 90 20 120/70 (87) 97 Nasal Cannula 4.0 97.5 General: Alert, No acute distress Lungs: Clear Cardiovascular: S1 Abdomen: Soft Neuro Exam: Alert Extremities: No Edema Labs Laboratory Tests Test 11/30/20 15:55 11/30/20 16:00 11/30/20 19:20 11/30/20 22:29 Coronavirus (PCR) Detected (Not Detected) White Blood Count 5.7 x10^3/uL (4.0-11.0) Red Blood Count 5.14 x10^6/uL (4.30-5.70) Hemoglobin 14.1 g/dL (13.0-17.5) Hematocrit 42.0 % (39.0-53.0) Mean Corpuscular Volume 82 fL (79-100) Mean Corpuscular Hemoglobin 27 pg (25-35) Mean Corpuscular Hemoglobin Concent 34 g/dL (31-37) Red Cell Distribution Width 14.6 % (11.5-14.5) Platelet Count 241 x10^3/uL (140-400) Neutrophils (%) (Auto) 59 % (31-73) Lymphocytes (%) (Auto) 27 % (24-48) Monocytes (%) (Auto) 13 % (0-9) Eosinophils (%) (Auto) 0 % (0-3) Basophils (%) (Auto) 1 % (0-3) Neutrophils # (Auto) 3.3 x10^3/uL (1.8-7.7) Lymphocytes # (Auto) 1.5 x10^3/uL (1.0-4.8) Monocytes # (Auto) 0.7 x10^3/uL (0.0-1.1) Eosinophils # (Auto) 0.0 x10^3/uL (0.0-0.7) Basophils # (Auto) 0.1 x10^3/uL (0.0-0.2) Sodium Level 136 mmol/L (136-145) Potassium Level 3.4 mmol/L (3.5-5.1) Chloride Level 102 mmol/L (98-107) Carbon Dioxide Level 23 mmol/L (21-32) Anion Gap 11 (6-14) Blood Urea Nitrogen 21 mg/dL (8-26) Creatinine 2.0 mg/dL (0.7-1.3) Estimated GFR (Cockcroft-Gault) 39.9 BUN/Creatinine Ratio 11 (6-20) Glucose Level 198 mg/dL (70-99) Lactic Acid Level 1.2 mmol/L (0.4-2.0) Calcium Level 8.6 mg/dL (8.5-10.1) Magnesium Level 2.4 mg/dL (1.8-2.4) Total Bilirubin 0.4 mg/dL (0.2-1.0) Aspartate Amino Transf (AST/SGOT) 43 U/L (15-37) Alanine Aminotransferase (ALT/SGPT) 29 U/L (16-63) Alkaline Phosphatase 75 U/L (46-116) Troponin I Quantitative < 0.017 ng/mL (0.000-0.055) < 0.017 ng/mL (0.000-0.055) BE-Lez-E-Type Natriuretic Peptide 45 pg/mL (0-124) Total Protein 7.3 g/dL (6.4-8.2) Albumin 2.5 g/dL (3.4-5.0) Albumin/Globulin Ratio 0.5 (1.0-1.7) Procalcitonin < 0.10 ng/mL (0.00-0.10) Thyroid Stimulating Hormone (TSH) 1.992 uIU/mL (0.358-3.74) Glucose (Fingerstick) 257 mg/dL (70-99) Test 11/30/20 22:30 11/30/20 23:40 12/01/20 08:21 12/01/20 12:20 Troponin I Quantitative < 0.017 ng/mL (0.000-0.055) Urine Collection Type Unknown Urine Color Yellow Urine Clarity Clear Urine pH 6.0 (<5.0-8.0) Urine Specific [place] 1.025 (1.000-1.030) Urine Protein >=300 mg/dL (NEG-TRACE) Urine Glucose (UA) 100 mg/dL (NEG) Urine Ketones (Stick) Negative mg/dL (NEG) Urine Blood Large (NEG) Urine Nitrite Negative (NEG) Urine Bilirubin Negative (NEG) Urine Urobilinogen Dipstick 0.2 mg/dL (0.2 mg/dL) Urine Leukocyte Esterase Negative (NEG) Urine RBC Occ /HPF (0-2) Urine WBC Occ /HPF (0-4) Urine Squamous Epithelial Cells Few /LPF Urine Bacteria 0 /HPF (0-FEW) Urine Hyaline Casts Few /HPF Urine Mucus Slight /LPF Urine Opiates Screen Neg (NEG) Urine Methadone Screen Neg (NEG) Urine Barbiturates Neg (NEG) Urine Phencyclidine Screen Neg (NEG) Urine Amphetamine/Methamphetamine Neg (NEG) Urine Benzodiazepines Screen Neg (NEG) Urine Cocaine Screen Neg (NEG) Urine Cannabinoids Screen Neg (NEG) Urine Ethyl Alcohol Neg (NEG) White Blood Count 3.3 x10^3/uL (4.0-11.0) Red Blood Count 5.08 x10^6/uL (4.30-5.70) Hemoglobin 13.6 g/dL (13.0-17.5) Hematocrit 41.4 % (39.0-53.0) Mean Corpuscular Volume 82 fL (79-100) Mean Corpuscular Hemoglobin 27 pg (25-35) Mean Corpuscular Hemoglobin Concent 33 g/dL (31-37) Red Cell Distribution Width 14.4 % (11.5-14.5) Platelet Count 269 x10^3/uL (140-400) Neutrophils (%) (Auto) 67 % (31-73) Lymphocytes (%) (Auto) 24 % (24-48) Monocytes (%) (Auto) 9 % (0-9) Eosinophils (%) (Auto) 0 % (0-3) Basophils (%) (Auto) 1 % (0-3) Neutrophils # (Auto) 2.2 x10^3/uL (1.8-7.7) Lymphocytes # (Auto) 0.8 x10^3/uL (1.0-4.8) Monocytes # (Auto) 0.3 x10^3/uL (0.0-1.1) Eosinophils # (Auto) 0.0 x10^3/uL (0.0-0.7) Basophils # (Auto) 0.0 x10^3/uL (0.0-0.2) Sodium Level 135 mmol/L (136-145) Potassium Level 3.9 mmol/L (3.5-5.1) Chloride Level 101 mmol/L (98-107) Carbon Dioxide Level 24 mmol/L (21-32) Anion Gap 10 (6-14) Blood Urea Nitrogen 27 mg/dL (8-26) Creatinine 1.9 mg/dL (0.7-1.3) Estimated GFR (Cockcroft-Gault) 42.4 BUN/Creatinine Ratio 14 (6-20) Glucose Level 348 mg/dL (70-99) Calcium Level 8.5 mg/dL (8.5-10.1) Total Bilirubin 0.3 mg/dL (0.2-1.0) Aspartate Amino Transf (AST/SGOT) 43 U/L (15-37) Alanine Aminotransferase (ALT/SGPT) 30 U/L (16-63) Alkaline Phosphatase 72 U/L (46-116) Total Protein 6.8 g/dL (6.4-8.2) Albumin 2.1 g/dL (3.4-5.0) Albumin/Globulin Ratio 0.4 (1.0-1.7) Procalcitonin < 0.10 ng/mL (0.00-0.10) Clostridium difficile Toxin (PCR) Negative (NEGATIVE) Test 12/01/20 16:36 12/01/20 20:09 12/02/20 07:25 Glucose (Fingerstick) 264 mg/dL (70-99) 253 mg/dL (70-99) Sodium Level 141 mmol/L (136-145) Potassium Level 3.8 mmol/L (3.5-5.1) Chloride Level 106 mmol/L (98-107) Carbon Dioxide Level 26 mmol/L (21-32) Anion Gap 9 (6-14) Blood Urea Nitrogen 33 mg/dL (8-26) Creatinine 2.1 mg/dL (0.7-1.3) Estimated GFR (Cockcroft-Gault) 37.8 BUN/Creatinine Ratio 16 (6-20) Glucose Level 188 mg/dL (70-99) Calcium Level 8.2 mg/dL (8.5-10.1) Total Bilirubin 0.3 mg/dL (0.2-1.0) Aspartate Amino Transf (AST/SGOT) 52 U/L (15-37) Alanine Aminotransferase (ALT/SGPT) 42 U/L (16-63) Alkaline Phosphatase 69 U/L (46-116) Total Protein 6.0 g/dL (6.4-8.2) Albumin 2.1 g/dL (3.4-5.0) Albumin/Globulin Ratio 0.5 (1.0-1.7) Laboratory Tests Test 12/01/20 12:20 12/01/20 16:36 12/01/20 20:09 12/02/20 07:25 Clostridium difficile Toxin (PCR) Negative (NEGATIVE) Glucose (Fingerstick) 264 mg/dL (70-99) 253 mg/dL (70-99) Sodium Level 141 mmol/L (136-145) Potassium Level 3.8 mmol/L (3.5-5.1) Chloride Level 106 mmol/L (98-107) Carbon Dioxide Level 26 mmol/L (21-32) Anion Gap 9 (6-14) Blood Urea Nitrogen 33 mg/dL (8-26) Creatinine 2.1 mg/dL (0.7-1.3) Estimated GFR (Cockcroft-Gault) 37.8 BUN/Creatinine Ratio 16 (6-20) Glucose Level 188 mg/dL (70-99) Calcium Level 8.2 mg/dL (8.5-10.1) Total Bilirubin 0.3 mg/dL (0.2-1.0) Aspartate Amino Transf (AST/SGOT) 52 U/L (15-37) Alanine Aminotransferase (ALT/SGPT) 42 U/L (16-63) Alkaline Phosphatase 69 U/L (46-116) Total Protein 6.0 g/dL (6.4-8.2) Albumin 2.1 g/dL (3.4-5.0) Albumin/Globulin Ratio 0.5 (1.0-1.7) Medications Active Scripts Medications Dose Route/Sig Max Daily Dose Days Date Category Ventolin Hfa Inhaler (Albuterol Sulfate) 18 Gm Hfa.aer.ad 2 Puff INH Q4HRS 12/01/20 Reported Fluticasone Propionate Nasal [place] (Fluticasone Propionate) 16 Gm [place].susp 2 [place] NS DAILY 12/01/20 Reported Benzonatate 100 Mg Capsule 1 Cap PO TID 12/01/20 Reported Xalatan (Latanoprost) 2.5 Ml Drops 1 Drop EACHEYE QHS 12/01/20 Reported Mucinex Fast-Max Mbsa-Atf-Xyco (Phenylephrine/Dm/Acetaminop/GG) 1 Each Capsule 1 Cap PO BID 10 12/01/20 Reported Famotidine 40 Mg Tablet 40 Mg PO HS 12/01/20 Reported Actos (Pioglitazone Hcl) 15 Mg Tablet 1 Tab PO DAILY 30 12/01/20 Reported Losartan Potassium 100 Mg Tablet 100 Mg PO DAILY 12/01/20 Reported Amlodipine Besylate 10 Mg Tablet 10 Mg PO DAILY 12/01/20 Reported Fish Oil 1,200 Mg Fish Oil (Fish Oil/Dha/Epa) 1 Each Capsule 1 Each PO 03/12/15 Reported Aspir 81 (Aspirin) 81 Mg Tablet.dr 1 Tab PO DAILY 03/12/15 Reported Atorvastatin Calcium 20 Mg Tablet 1 Tab PO DAILY 03/12/15 Reported Kombiglyze Xr 5-1,000 Mg Tab (Saxagliptin Hcl/Metformin Hcl) 1 Each Tbmp.24hr 1 Tab PO DAILY 03/12/15 Reported Impression . 1. Persistent nonproductive cough for the past 1 month with bilateral diffuse interstitial infiltrates. No old x-ray available for comparison. He also has hypoxic respiratory failure. The etiology of his symptoms can be multifactorial and includes. A. COVID-19 viral pneumonia. B. less likely chronic interstitial lung disease. C. Atypical superimposed bacterial infection such as mycoplasma since he had diarrhea as well. 2. No significant tobacco history. 3. Abnormal chest x-ray with bilateral interstitial infiltrates. Plan . 1. Continue present oxygen to keep saturation 92 and above. 2. Continue empiric antibiotics. 3. Positive COVID infection. 4. Continue steroids. 5. DVT prophylaxis with Lovenox. 6. The patient is not on any EGDAR inhibitors. 7. steroid inhaler to see an improvement in the cough. 9. Discussed with RN. We will follow along with you. CECILIA TIDWELL MD Dec 02, 2020 12:10
--- NOTE | 2020-12-02 12:25 | PDOC ---
[facility] PROGRESS NOTE Date of Service DOS: DATE: 12/02/20 TIME: 12:21 Chief Complaint Chief Complaint Assessment/Plan Acute respiratory failure with hypoxia COVID-19 PUI DM2 hyperglycemia RORO Vasomotor nephropathy Severe malnutrition Plan: Will admit patient with pulmonology consult Chest x-ray admission showed diffuse interstitial infiltrates; will treat with Rocephin and doxycycline COVID-19 test pending; will treat with IV steroids supportive care If COVID-19 is positive, will initiate treatment with remdesivir Basal/prandial insulin; A1c pending Resume home medications FEN - ADA diet PPX - Lovenox FULL CODE Dispo - inpatient for above History of Present Illness History of Present Illness Patient 68-year-old male with past medical history of type 2 diabetes presents to the ER with complaints of nonproductive cough over the past month. He reports associated nausea, vomiting, and diarrhea over the past 5 days. He does note his is COVID-19 positive at home. Upon arrival in the ER his O2 saturation was 85% on room air. He was placed on 4 L nasal cannula with improvement. Will make patient further medical management. 12/02: Patient seen and evaluated. Afebrile overnight. Currently saturating 97% on 4 L O2. He is COVID-19 positive. Provide albuterol inhaler and initiate remdesivir. Charts and labs reviewed. Vitals/I&O Vitals/I&O: Vital Signs Date Time Temp Pulse Resp B/P (MAP) Pulse Ox O2 Delivery O2 Flow Rate FiO2 12/02/20 11:16 97.5 90 20 120/70 (87) 97 Nasal Cannula 4.0 97.5 I & O 12/01/20 12/01/20 12/02/20 15:00 23:00 07:00 Intake Total 400 ml 400 ml 700 ml Output Total 400 ml 475 ml Balance 0 ml 400 ml 225 ml Physical Exam General: Alert Heart: Regular rate Lungs: Clear Abdomen: Normal bowel sounds, Soft Extremities: No clubbing, No cyanosis Skin: No rashes, No breakdown Labs Labs: Laboratory Tests Test 12/01/20 16:36 12/01/20 20:09 12/02/20 07:25 Glucose (Fingerstick) 264 mg/dL (70-99) 253 mg/dL (70-99) Sodium Level 141 mmol/L (136-145) Potassium Level 3.8 mmol/L (3.5-5.1) Chloride Level 106 mmol/L (98-107) Carbon Dioxide Level 26 mmol/L (21-32) Anion Gap 9 (6-14) Blood Urea Nitrogen 33 mg/dL (8-26) Creatinine 2.1 mg/dL (0.7-1.3) Estimated GFR (Cockcroft-Gault) 37.8 BUN/Creatinine Ratio 16 (6-20) Glucose Level 188 mg/dL (70-99) Calcium Level 8.2 mg/dL (8.5-10.1) Total Bilirubin 0.3 mg/dL (0.2-1.0) Aspartate Amino Transf (AST/SGOT) 52 U/L (15-37) Alanine Aminotransferase (ALT/SGPT) 42 U/L (16-63) Alkaline Phosphatase 69 U/L (46-116) Total Protein 6.0 g/dL (6.4-8.2) Albumin 2.1 g/dL (3.4-5.0) Albumin/Globulin Ratio 0.5 (1.0-1.7) Assessment and Plan Assessmemt and Plan Problems Medical Problems: (1) Acute renal failure Status: Acute (2) Acute respiratory failure Status: Acute (3) Diarrhea Status: Acute (4) Person under investigation for COVID-19 Status: Acute (5) Pneumonia of both lower lobes Status: Acute Comment Review of Relevant I have reviewed the following items ryan (where applicable) has been applied. Medications: Current Medications Medications (Trade) Dose Ordered Sig/Khoa Route PRN Reason Start Time Stop Time Status Last Admin Dose Admin Psyllium Hydrophilic Mucilloid (Metamucil Fiber Packet) 1 pkt QHS PO 12/01/20 21:00 12/01/20 21:19 Enoxaparin Sodium (Lovenox 40mg Syringe) 40 mg Q24H SQ 12/01/20 21:00 12/01/20 21:19 Insulin Glargine (Lantus Syringe) 20 unit QHS SQ 12/01/20 21:00 12/01/20 21:52 Insulin Human Lispro (HumaLOG) 10 units TIDAC SQ 12/01/20 16:30 12/02/20 12:02 Insulin Human Lispro (HumaLOG) 18 units 1X ONCE SQ 12/01/20 13:00 12/01/20 13:01 DC 12/01/20 13:16 Sodium Chloride 500 ml @ 500 mls/hr 1X ONCE IV 12/01/20 13:00 12/01/20 13:59 DC 12/01/20 13:02 Lactobacillus Rhamnosus (Culturelle) 1 cap BID PO 12/01/20 21:00 12/02/20 07:57 Justifications for Admission Other Justification Acute respiratory failure with hypoxia, COVID-19 ASUNCION SAENZ MD Dec 02, 2020 12:25
[2020-12-02] MEDS ORDERED: ALBUTEROL SULFATE 8GM INHALER. INH PRN (12:30)
[2020-12-02] MEDS ORDERED: REMDESIVIR LOAD in IV NORMAL SALINE 250ML TV IV ONE (13:00)
[2020-12-02 15:10] VITALS: BP 141/70
--- NOTE | 2020-12-02 15:49 | NUR ---
SW following for discharge planning. Spoke with RN and reviewed chart. Pt's COVID result came back positive. Pt started on IV Remdesivir today, 12/02. Pt remains on . Pt will likely need a 6 min walk prior to discharge. PT recommendation is home, independent. Discharge plan is home with , self-care when stable. SW following.
[2020-12-02 19:00] VITALS: BP 132/74
[2020-12-02] MEDS: ATORVASTATIN CALCIUM 20 MG TABLET PO SCH (19:42)
[2020-12-02] MEDS: LATANOPROST 0.005% OPHTH SOLUTION 2.5ML BOTTLE. OS SCH (19:42)
[2020-12-02] MEDS: PSYLLIUM HUSK (SUGAR FREE) 1 PKT PACKET PO SCH (19:42)
[2020-12-02] MEDS: ENOXAPARIN 40 MG/0.4 ML SYRINGE. SQ SCH (19:43)
[2020-12-02] MEDS ORDERED: LATANOPROST 0.005% OPHTH SOLUTION 2.5ML BOTTLE. OU SCH (21:00)
[2020-12-02] MEDS: INSULIN GLARGINE SYRINGE. SQ SCH (21:05)
[2020-12-02 23:00] VITALS: BP 130/63
[2020-12-03 03:00] VITALS: BP 150/105
[2020-12-03 07:56] VITALS: BP 130/67
[2020-12-03] MEDS: INSULIN LISPRO 300 UNITS/3 ML VIAL. SQ SCH ×6 (08:00→18:12)
[2020-12-03] MEDS: ASPIRIN ENTERIC COATED 81 MG TABLET.DR. PO SCH (09:22)
[2020-12-03] MEDS: LACTOBACILLUS RHAMNOSUS GG 1 CAPSULE. PO SCH ×2 (09:22→21:27)
[2020-12-03] MEDS: AZITHROMYCIN 250 MG TABLET. PO SCH (09:22)
[2020-12-03] MEDS: DEXAMETHASONE SOD PHOS 4 MG/ML VIAL IVP SCH (09:22)
[2020-12-03] MEDS: FLUTICASONE/VILANTEROL 100/25 INHALER. INH SCH (09:30)
[2020-12-03] MEDS: cefTRIAXone IV Push 1 GM VIAL. IVP SCH (09:30)
[2020-12-03] MEDS: ZINC SULFATE 220 MG CAPSULE. PO SCH (09:52)
[2020-12-03 09:54] LABS: ALBUMIN 1.9 g/dL (3.4-5.0); ALBUMIN/GLOBULIN RATIO 0.5 (1.0-1.7); CALCIUM 8.2 mg/dL (8.5-10.1); GFR 39.9; POTASSIUM 3.9 mmol/L (3.5-5.1); TOTAL BILIRUBIN 0.3 mg/dL (0.2-1.0); TOTAL PROTEIN 6.1 g/dL (6.4-8.2)
--- NOTE | 2020-12-03 09:56 | PDOC ---
PULMONARY PROGRESS NOTES DATE: 12/03/20 TIME: 09:53 Subjective pt. remains on 5 liters N/C afebrile Continues to have non-productive cough Vitals Vital Signs Date Time Temp Pulse Resp B/P (MAP) Pulse Ox O2 Delivery O2 Flow Rate FiO2 12/03/20 07:56 97.7 93 20 130/67 (88) 93 Nasal Cannula 6.0 97.7 ROS: No Nausea, No Chest Pain, No Abdominal Pain General: Alert, No acute distress Lungs: Clear Cardiovascular: S1 Abdomen: Soft Neuro Exam: Alert Extremities: No Edema Labs Laboratory Tests Test 12/01/20 12:20 12/01/20 16:36 12/01/20 20:09 12/02/20 07:25 Clostridium difficile Toxin (PCR) Negative (NEGATIVE) Glucose (Fingerstick) 264 mg/dL (70-99) 253 mg/dL (70-99) Sodium Level 141 mmol/L (136-145) Potassium Level 3.8 mmol/L (3.5-5.1) Chloride Level 106 mmol/L (98-107) Carbon Dioxide Level 26 mmol/L (21-32) Anion Gap 9 (6-14) Blood Urea Nitrogen 33 mg/dL (8-26) Creatinine 2.1 mg/dL (0.7-1.3) Estimated GFR (Cockcroft-Gault) 37.8 BUN/Creatinine Ratio 16 (6-20) Glucose Level 188 mg/dL (70-99) Hemoglobin A1c 9.0 % (4.8-5.6) Calcium Level 8.2 mg/dL (8.5-10.1) Total Bilirubin 0.3 mg/dL (0.2-1.0) Aspartate Amino Transf (AST/SGOT) 52 U/L (15-37) Alanine Aminotransferase (ALT/SGPT) 42 U/L (16-63) Alkaline Phosphatase 69 U/L (46-116) Total Protein 6.0 g/dL (6.4-8.2) Albumin 2.1 g/dL (3.4-5.0) Albumin/Globulin Ratio 0.5 (1.0-1.7) Medications Active Scripts Medications Dose Route/Sig Max Daily Dose Days Date Category Ventolin Hfa Inhaler (Albuterol Sulfate) 18 Gm Hfa.aer.ad 2 Puff INH Q4HRS 12/01/20 Reported Fluticasone Propionate Nasal [place] (Fluticasone Propionate) 16 Gm [place].susp 2 [place] NS DAILY 12/01/20 Reported Benzonatate 100 Mg Capsule 1 Cap PO TID 12/01/20 Reported Xalatan (Latanoprost) 2.5 Ml Drops 1 Drop EACHEYE QHS 12/01/20 Reported Mucinex Fast-Max Xaxe-Zph-Udzc (Phenylephrine/Dm/Acetaminop/GG) 1 Each Capsule 1 Cap PO BID 10 12/01/20 Reported Famotidine 40 Mg Tablet 40 Mg PO HS 12/01/20 Reported Actos (Pioglitazone Hcl) 15 Mg Tablet 1 Tab PO DAILY 30 12/01/20 Reported Losartan Potassium 100 Mg Tablet 100 Mg PO DAILY 12/01/20 Reported Amlodipine Besylate 10 Mg Tablet 10 Mg PO DAILY 12/01/20 Reported Fish Oil 1,200 Mg Fish Oil (Fish Oil/Dha/Epa) 1 Each Capsule 1 Each PO 03/12/15 Reported Aspir 81 (Aspirin) 81 Mg Tablet.dr 1 Tab PO DAILY 03/12/15 Reported Atorvastatin Calcium 20 Mg Tablet 1 Tab PO DAILY 03/12/15 Reported Kombiglyze Xr 5-1,000 Mg Tab (Saxagliptin Hcl/Metformin Hcl) 1 Each Tbmp.24hr 1 Tab PO DAILY 03/12/15 Reported Comments CXR IMPRESSION: Diffuse interstitial infiltrate likely superimposed on chronic interstitial changes. Impression . 1. Persistent nonproductive cough for the past 1 month with bilateral diffuse interstitial infiltrates. No old x-ray available for comparison. He also has hypoxic respiratory failure. The etiology of his symptoms can be multifactorial and includes. A. COVID-19 viral pneumonia. B. less likely chronic interstitial lung disease. C. Atypical superimposed bacterial infection such as mycoplasma since he had diarrhea as well. 2. No significant tobacco history. 3. Abnormal chest x-ray with bilateral interstitial infiltrates. Plan . Continue present oxygen to keep saturation 92 and above, currently on 5 liters 6 min walk prior to D/C Continue empiric antibiotics: on rocephin and azithro Positive COVID infection Continue Remdesivir for full course Continue steroids, will need full ten day course DVT prophylaxis with Lovenox. Continue steroid inhaler PRN antitussive Discussed with RN. We will see PRN please call with any questions or concerns thank you CECILIA TIDWELL MD Dec 03, 2020 09:55
[2020-12-03] MEDS: guaiFENesin DM 200MG/20MG 10 ML SYRUP PO PRN (10:30)
[2020-12-03 11:11] VITALS: BP 140/77
--- NOTE | 2020-12-03 12:18 | PDOC ---
[facility] [facility] PROGRESS NOTE Date of Service DOS: DATE: 12/03/20 TIME: 12:17 Chief Complaint Chief Complaint Assessment/Plan Acute respiratory failure with hypoxia COVID-19 PUI DM2 hyperglycemia RORO Vasomotor nephropathy Severe malnutrition Plan: Will admit patient with pulmonology consult Chest x-ray admission showed diffuse interstitial infiltrates; will treat with Rocephin and doxycycline COVID-19 test pending; will treat with IV steroids supportive care If COVID-19 is positive, will initiate treatment with remdesivir Basal/prandial insulin; A1c pending Resume home medications FEN - ADA diet PPX - Lovenox FULL CODE Dispo - inpatient for above History of Present Illness History of Present Illness Patient 68-year-old male with past medical history of type 2 diabetes presents to the ER with complaints of nonproductive cough over the past month. He reports associated nausea, vomiting, and diarrhea over the past 5 days. He does note his is COVID-19 positive at home. Upon arrival in the ER his O2 saturation was 85% on room air. He was placed on 4 L nasal cannula with improvement. Will make patient further medical management. 12/02: Patient seen and evaluated. Afebrile overnight. Currently saturating 97% on 4 L O2. He is COVID-19 positive. Provide albuterol inhaler and initiate remdesivir. Charts and labs reviewed. 12/03. Patient is afebrile, currently breathing on 6 L nasal cannula. Diarrhea improved. Remdesivir day 2/5. Continue steroids, antibiotics, and supportive care. Complains of a cough, will provide Tessalon Perles. Vitals/I&O Vitals/I&O: Vital Signs Date Time Temp Pulse Resp B/P (MAP) Pulse Ox O2 Delivery O2 Flow Rate FiO2 12/03/20 11:11 97.7 99 20 140/77 (98) 97 Nasal Cannula 6.0 97.7 I & O 12/02/20 12/02/20 12/03/20 15:00 23:00 07:00 Intake Total 380 ml 1100 ml Output Total 400 ml 450 ml 800 ml Balance -20 ml 650 ml -800 ml Physical Exam General: Alert Heart: Regular rate Lungs: Clear Abdomen: Normal bowel sounds, Soft Extremities: No clubbing, No cyanosis Skin: No rashes, No breakdown Labs Labs: Laboratory Tests Test 12/03/20 09:32 Sodium Level 144 mmol/L (136-145) Potassium Level 3.9 mmol/L (3.5-5.1) Chloride Level 110 mmol/L (98-107) Carbon Dioxide Level 27 mmol/L (21-32) Anion Gap 7 (6-14) Blood Urea Nitrogen 31 mg/dL (8-26) Creatinine 2.0 mg/dL (0.7-1.3) Estimated GFR (Cockcroft-Gault) 39.9 BUN/Creatinine Ratio 16 (6-20) Glucose Level 213 mg/dL (70-99) Calcium Level 8.2 mg/dL (8.5-10.1) Total Bilirubin 0.3 mg/dL (0.2-1.0) Aspartate Amino Transf (AST/SGOT) 40 U/L (15-37) Alanine Aminotransferase (ALT/SGPT) 45 U/L (16-63) Alkaline Phosphatase 72 U/L (46-116) Total Protein 6.1 g/dL (6.4-8.2) Albumin 1.9 g/dL (3.4-5.0) Albumin/Globulin Ratio 0.5 (1.0-1.7) Assessment and Plan Assessmemt and Plan Problems Medical Problems: (1) Acute renal failure Status: Acute (2) Acute respiratory failure Status: Acute (3) Diarrhea Status: Acute (4) Person under investigation for COVID-19 Status: Acute (5) Pneumonia of both lower lobes Status: Acute Comment Review of Relevant I have reviewed the following items ryan (where applicable) has been applied. Medications: Current Medications Medications (Trade) Dose Ordered Sig/Khoa Route PRN Reason Start Time Stop Time Status Last Admin Dose Admin Atorvastatin Calcium (Lipitor) 20 mg QHS PO 12/02/20 21:00 12/02/20 19:42 Remdesivir 200 mg/ Sodium Chloride 210 ml @ 210 mls/hr 1X ONCE IV 12/02/20 13:00 12/02/20 13:59 DC 12/02/20 14:50 Latanoprost (Xalatan) 1 drop QHS OS 12/02/20 21:00 12/02/20 19:42 Zinc Sulfate (Orazinc) 220 mg DAILY PO 12/03/20 10:00 12/15/20 09:59 12/03/20 09:52 Justifications for Admission Other Justification Acute respiratory failure with hypoxia, COVID-19 ASUNCION SAENZ MD Dec 03, 2020 12:18
[2020-12-03] MEDS: REMDESIVIR 100mg in NORMAL SALINE 250ML X 4 DAYS IV SCH (12:53)
[2020-12-03 15:04] VITALS: BP 121/70
[2020-12-03] MEDS ORDERED: guaiFENesin/CODEINE 100mg/10mg 5 ML LIQUID PO PRN (15:45)
--- NOTE | 2020-12-03 16:41 | NUR ---
SW following for discharge planning. Spoke with RN and reviewed chart. Pt remains on IV Remdesivir so won't be ready for discharge prior to 12/06. Pt on 6l 02. 6 min walk needs to be ordered by 12/04 in case pt does discharge over the coming weekend. SW following.
[2020-12-03 19:00] VITALS: BP 144/77
[2020-12-03] MEDS: ATORVASTATIN CALCIUM 20 MG TABLET PO SCH (21:27)
[2020-12-03] MEDS: BENZONATATE 100 MG CAPSULE. PO SCH (21:27)
[2020-12-03] MEDS: ENOXAPARIN 40 MG/0.4 ML SYRINGE. SQ SCH (21:28)
[2020-12-03] MEDS: PSYLLIUM HUSK (SUGAR FREE) 1 PKT PACKET PO SCH (21:28)
[2020-12-03] MEDS: INSULIN GLARGINE SYRINGE. SQ SCH (21:36)
[2020-12-03] MEDS: LATANOPROST 0.005% OPHTH SOLUTION 2.5ML BOTTLE. OS SCH (21:38)
--- NOTE | 2020-12-03 21:46 | NUR ---
Attempted to explain to pt regarding protocol on medications; like eye gtts, inhalers and creams being left in room and not placed in refrigerator due to Covid. However pt insist that he will not be able to take his eye gtts without his medication being in refrigerator. Medication was found in refrigerator and pt states he has spoke to "higher ups" and received the ok. Pt informed of possibly contaminating other medications however pt insist that its not possible. Pt eye gtt has been placed in biohazard bag and placed back in refrigerator on bottom shelf.
[2020-12-03 23:15] VITALS: BP 147/71
[2020-12-04 03:00] VITALS: BP 135/67
[2020-12-04] MEDS: DEXAMETHASONE SOD PHOS 4 MG/ML VIAL IVP SCH (06:12)
[2020-12-04 07:00] VITALS: BP 145/65
[2020-12-04] MEDS: INSULIN LISPRO 300 UNITS/3 ML VIAL. SQ SCH ×6 (07:30→16:58)
[2020-12-04] MEDS: FLUTICASONE/VILANTEROL 100/25 INHALER. INH SCH (08:26)
[2020-12-04] MEDS: LACTOBACILLUS RHAMNOSUS GG 1 CAPSULE. PO SCH ×2 (08:27→21:10)
[2020-12-04] MEDS: BENZONATATE 100 MG CAPSULE. PO SCH ×3 (08:27→21:11)
[2020-12-04] MEDS: ASPIRIN ENTERIC COATED 81 MG TABLET.DR. PO SCH (08:27)
[2020-12-04] MEDS: ZINC SULFATE 220 MG CAPSULE. PO SCH (08:27)
[2020-12-04] MEDS: AZITHROMYCIN 250 MG TABLET. PO SCH (08:27)
[2020-12-04] MEDS: cefTRIAXone IV Push 1 GM VIAL. IVP SCH (08:27)
--- NOTE | 2020-12-04 09:41 | PDOC ---
PULMONARY PROGRESS NOTES DATE: 12/04/20 TIME: 09:38 Subjective pt. remains on 6 liters N/C afebrile Continues to have non-productive cough Vitals Vital Signs Date Time Temp Pulse Resp B/P (MAP) Pulse Ox O2 Delivery O2 Flow Rate FiO2 12/04/20 07:00 96.5 70 18 145/65 (91) 94 Nasal Cannula 6.0 96.5 ROS: No Nausea, No Chest Pain, No Abdominal Pain, No Increase Cough General: Alert, No acute distress Lungs: Clear Cardiovascular: S1, S2 Abdomen: Soft Neuro Exam: Alert Extremities: No Edema Skin: Warm, Dry Labs Laboratory Tests Test 12/02/20 10:43 12/02/20 16:21 12/02/20 19:24 12/03/20 07:38 Glucose (Fingerstick) 285 mg/dL (70-99) 186 mg/dL (70-99) 250 mg/dL (70-99) 144 mg/dL (70-99) Test 12/03/20 09:32 12/03/20 10:38 12/03/20 16:07 12/03/20 19:35 Sodium Level 144 mmol/L (136-145) Potassium Level 3.9 mmol/L (3.5-5.1) Chloride Level 110 mmol/L (98-107) Carbon Dioxide Level 27 mmol/L (21-32) Anion Gap 7 (6-14) Blood Urea Nitrogen 31 mg/dL (8-26) Creatinine 2.0 mg/dL (0.7-1.3) Estimated GFR (Cockcroft-Gault) 39.9 BUN/Creatinine Ratio 16 (6-20) Glucose Level 213 mg/dL (70-99) Calcium Level 8.2 mg/dL (8.5-10.1) Total Bilirubin 0.3 mg/dL (0.2-1.0) Aspartate Amino Transf (AST/SGOT) 40 U/L (15-37) Alanine Aminotransferase (ALT/SGPT) 45 U/L (16-63) Alkaline Phosphatase 72 U/L (46-116) Total Protein 6.1 g/dL (6.4-8.2) Albumin 1.9 g/dL (3.4-5.0) Albumin/Globulin Ratio 0.5 (1.0-1.7) Glucose (Fingerstick) 229 mg/dL (70-99) 189 mg/dL (70-99) 239 mg/dL (70-99) Test 12/04/20 07:33 Glucose (Fingerstick) 138 mg/dL (70-99) Laboratory Tests Test 12/03/20 10:38 12/03/20 16:07 12/03/20 19:35 12/04/20 07:33 Glucose (Fingerstick) 229 mg/dL (70-99) 189 mg/dL (70-99) 239 mg/dL (70-99) 138 mg/dL (70-99) Medications Active Scripts Medications Dose Route/Sig Max Daily Dose Days Date Category Ventolin Hfa Inhaler (Albuterol Sulfate) 18 Gm Hfa.aer.ad 2 Puff INH Q4HRS 12/01/20 Reported Fluticasone Propionate Nasal [place] (Fluticasone Propionate) 16 Gm [place].susp 2 [place] NS DAILY 12/01/20 Reported Benzonatate 100 Mg Capsule 1 Cap PO TID 12/01/20 Reported Xalatan (Latanoprost) 2.5 Ml Drops 1 Drop EACHEYE QHS 12/01/20 Reported Mucinex Fast-Max Clda-Yto-Jorj (Phenylephrine/Dm/Acetaminop/GG) 1 Each Capsule 1 Cap PO BID 10 12/01/20 Reported Famotidine 40 Mg Tablet 40 Mg PO HS 12/01/20 Reported Actos (Pioglitazone Hcl) 15 Mg Tablet 1 Tab PO DAILY 30 12/01/20 Reported Losartan Potassium 100 Mg Tablet 100 Mg PO DAILY 12/01/20 Reported Amlodipine Besylate 10 Mg Tablet 10 Mg PO DAILY 12/01/20 Reported Fish Oil 1,200 Mg Fish Oil (Fish Oil/Dha/Epa) 1 Each Capsule 1 Each PO 03/12/15 Reported Aspir 81 (Aspirin) 81 Mg Tablet.dr 1 Tab PO DAILY 03/12/15 Reported Atorvastatin Calcium 20 Mg Tablet 1 Tab PO DAILY 03/12/15 Reported Kombiglyze Xr 5-1,000 Mg Tab (Saxagliptin Hcl/Metformin Hcl) 1 Each Tbmp.24hr 1 Tab PO DAILY 03/12/15 Reported Comments CXR IMPRESSION: Diffuse interstitial infiltrate likely superimposed on chronic interstitial changes. Impression . 1. Persistent nonproductive cough for the past 1 month with bilateral diffuse interstitial infiltrates. No old x-ray available for comparison. He also has hypoxic respiratory failure. The etiology of his symptoms can be multifactorial and includes. A. COVID-19 viral pneumonia. B. less likely chronic interstitial lung disease. C. Atypical superimposed bacterial infection such as mycoplasma since he had diarrhea as well. 2. No significant tobacco history. 3. Abnormal chest x-ray with bilateral interstitial infiltrates. Plan . Continue present oxygen to keep saturation 92 and above, currently on 5 liters 6 min walk prior to D/C Positive COVID infection Continue ABX: now off Rocephin, finish full course of Azithromycin Continue Remdesivir for full course Continue steroids, will need full ten day course, taper slowly symptomatic tx. of cough DVT prophylaxis with Lovenox. Continue steroid inhaler PRN antitussive Discussed with RN. Pt. is FULL CODE CECILIA TIDWELL MD Dec 04, 2020 09:41
[2020-12-04 11:00] VITALS: BP 133/74
[2020-12-04] MEDS ORDERED: LOPERAMIDE 2 MG CAPSULE PO PRN (11:30)
[2020-12-04] MEDS: REMDESIVIR 100mg in NORMAL SALINE 250ML X 4 DAYS IV SCH (11:53)
[2020-12-04 15:00] VITALS: BP 132/74
--- NOTE | 2020-12-04 16:43 | PDOC ---
[facility] PROGRESS NOTE Date of Service DOS: DATE: 12/04/20 TIME: 16:42 Chief Complaint Chief Complaint Assessment/Plan Acute respiratory failure with hypoxia COVID-19 PUI DM2 hyperglycemia RORO Vasomotor nephropathy Severe malnutrition Plan: Will admit patient with pulmonology consult Chest x-ray admission showed diffuse interstitial infiltrates; will treat with Rocephin and doxycycline COVID-19 test pending; will treat with IV steroids supportive care If COVID-19 is positive, will initiate treatment with remdesivir Basal/prandial insulin; A1c pending Resume home medications FEN - ADA diet PPX - Lovenox FULL CODE Dispo - inpatient for above History of Present Illness History of Present Illness Patient 68-year-old male with past medical history of type 2 diabetes presents to the ER with complaints of nonproductive cough over the past month. He reports associated nausea, vomiting, and diarrhea over the past 5 days. He does note his is COVID-19 positive at home. Upon arrival in the ER his O2 saturation was 85% on room air. He was placed on 4 L nasal cannula with improvement. Will make patient further medical management. 12/02: Patient seen and evaluated. Afebrile overnight. Currently saturating 97% on 4 L O2. He is COVID-19 positive. Provide albuterol inhaler and initiate remdesivir. Charts and labs reviewed. 12/03. Patient is afebrile, currently breathing on 6 L nasal cannula. Diarrhea improved. Remdesivir day 2/5. Continue steroids, antibiotics, and supportive care. Complains of a cough, will provide Tessalon Perles. 12/04: Afebrile. Breathing on 6 L nasal cannula. Continue remdesivir days 3/5, follow LFTs. Continue steroids, antibiotics, supportive care. Vitals/I&O Vitals/I&O: Vital Signs Date Time Temp Pulse Resp B/P (MAP) Pulse Ox O2 Delivery O2 Flow Rate FiO2 12/04/20 11:00 96.8 67 18 133/74 (93) 97 Nasal Cannula 6.0 96.8 I & O 12/03/20 12/03/20 12/04/20 15:00 23:00 07:00 Intake Total 600 ml 300 ml 200 ml Output Total 400 ml 425 ml Balance 600 ml -100 ml -225 ml Physical Exam General: Alert Heart: Regular rate Lungs: Clear Abdomen: Normal bowel sounds, Soft Extremities: No clubbing, No cyanosis Skin: No rashes, No breakdown Labs Labs: Laboratory Tests Test 12/03/20 19:35 12/04/20 07:33 12/04/20 11:00 Glucose (Fingerstick) 239 mg/dL (70-99) 138 mg/dL (70-99) 241 mg/dL (70-99) Assessment and Plan Assessmemt and Plan Problems Medical Problems: (1) Acute renal failure Status: Acute (2) Acute respiratory failure Status: Acute (3) Diarrhea Status: Acute (4) Person under investigation for COVID-19 Status: Acute (5) Pneumonia of both lower lobes Status: Acute Comment Review of Relevant I have reviewed the following items ryan (where applicable) has been applied. Medications: Current Medications Medications (Trade) Dose Ordered Sig/Khoa Route PRN Reason Start Time Stop Time Status Last Admin Dose Admin Benzonatate (Tessalon Perle) 100 mg [id number] PO 12/03/20 21:00 12/04/20 13:58 Loperamide HCl (Imodium) 2 mg PRN Q15MIN PRN PO DIARRHEA 12/04/20 11:30 12/04/20 11:53 Justifications for Admission Other Justification Acute respiratory failure with hypoxia, COVID-19 ASUNCION SAENZ MD Dec 04, 2020 16:43
[2020-12-04 19:56] VITALS: BP 132/69
[2020-12-04] MEDS ORDERED: DEXTROSE 50% 25 GM / 50ML DISP.SYRIN. IV PRN (20:15)
[2020-12-04] MEDS: PSYLLIUM HUSK (SUGAR FREE) 1 PKT PACKET PO SCH (21:00)
[2020-12-04] MEDS: ENOXAPARIN 40 MG/0.4 ML SYRINGE. SQ SCH (21:10)
[2020-12-04] MEDS: ATORVASTATIN CALCIUM 20 MG TABLET PO SCH (21:10)
[2020-12-04] MEDS: LATANOPROST 0.005% OPHTH SOLUTION 2.5ML BOTTLE. OS SCH (21:10)
[2020-12-04] MEDS: INSULIN GLARGINE SYRINGE. SQ SCH (21:15)
[2020-12-04 23:33] VITALS: BP 130/77
[2020-12-05 03:59] VITALS: BP 137/91
[2020-12-05 05:20] LABS: BASO % 0 % (0-3); EOS % 0 % (0-3); HEMATOCRIT 40.5 % (39.0-53.0); HEMOGLOBIN 13.1 g/dL (13.0-17.5); LYMPH # 1.9 x10^3/uL (1.0-4.8); LYMPH % 16 % (24-48); MEAN CORPUSCULAR HEMOGLOBIN 27 pg (25-35); MEAN CORPUSCULAR HGB CONC 32 g/dL (31-37); MEAN CORPUSCULAR VOLUME 82 fL (79-100); MONO # 1.5 x10^3/uL (0.0-1.1); MONO % 13 % (0-9); NEUT % 70 % (31-73); PLATELET COUNT 402 x10^3/uL (140-400); RED BLOOD COUNT 4.93 x10^6/uL (4.30-5.70); RED CELL DISTRIBUTION WIDTH 14.6 % (11.5-14.5); WHITE BLOOD COUNT 11.4 x10^3/uL (4.0-11.0)
[2020-12-05 05:39] LABS: CREATININE 1.9 mg/dL (0.7-1.3); GFR 42.4; POTASSIUM 4.4 mmol/L (3.5-5.1)
[2020-12-05] MEDS: DEXAMETHASONE SOD PHOS 4 MG/ML VIAL IVP SCH (06:50)
[2020-12-05 07:00] VITALS: BP 132/68
--- NOTE | 2020-12-05 07:16 | PDOC ---
PULMONARY PROGRESS NOTES DATE: 12/05/20 TIME: 07:15 Subjective pt. remains on 6 liters N/C afebrile has cough post nasal drip diarrhea Vitals Vital Signs Date Time Temp Pulse Resp B/P (MAP) Pulse Ox O2 Delivery O2 Flow Rate FiO2 12/05/20 03:59 97.5 64 16 137/91 (106) 95 Nasal Cannula 6.0 97.5 Comments on 02 alert nc at no accessory muscle use obese ROS: No Nausea, No Chest Pain, No Abdominal Pain, No Increase Cough General: Alert, No acute distress Neuro Exam: Alert Extremities: No Edema Skin: No Rashes Labs Laboratory Tests Test 12/03/20 07:38 12/03/20 09:32 12/03/20 10:38 12/03/20 16:07 Glucose (Fingerstick) 144 mg/dL (70-99) 229 mg/dL (70-99) 189 mg/dL (70-99) Sodium Level 144 mmol/L (136-145) Potassium Level 3.9 mmol/L (3.5-5.1) Chloride Level 110 mmol/L (98-107) Carbon Dioxide Level 27 mmol/L (21-32) Anion Gap 7 (6-14) Blood Urea Nitrogen 31 mg/dL (8-26) Creatinine 2.0 mg/dL (0.7-1.3) Estimated GFR (Cockcroft-Gault) 39.9 BUN/Creatinine Ratio 16 (6-20) Glucose Level 213 mg/dL (70-99) Calcium Level 8.2 mg/dL (8.5-10.1) Total Bilirubin 0.3 mg/dL (0.2-1.0) Aspartate Amino Transf (AST/SGOT) 40 U/L (15-37) Alanine Aminotransferase (ALT/SGPT) 45 U/L (16-63) Alkaline Phosphatase 72 U/L (46-116) Total Protein 6.1 g/dL (6.4-8.2) Albumin 1.9 g/dL (3.4-5.0) Albumin/Globulin Ratio 0.5 (1.0-1.7) Test 12/03/20 19:35 12/04/20 07:33 12/04/20 11:00 12/04/20 16:26 Glucose (Fingerstick) 239 mg/dL (70-99) 138 mg/dL (70-99) 241 mg/dL (70-99) 447 mg/dL (70-99) Test 12/04/20 20:52 12/05/20 03:30 Glucose (Fingerstick) 256 mg/dL (70-99) White Blood Count 11.4 x10^3/uL (4.0-11.0) Red Blood Count 4.93 x10^6/uL (4.30-5.70) Hemoglobin 13.1 g/dL (13.0-17.5) Hematocrit 40.5 % (39.0-53.0) Mean Corpuscular Volume 82 fL (79-100) Mean Corpuscular Hemoglobin 27 pg (25-35) Mean Corpuscular Hemoglobin Concent 32 g/dL (31-37) Red Cell Distribution Width 14.6 % (11.5-14.5) Platelet Count 402 x10^3/uL (140-400) Neutrophils (%) (Auto) 70 % (31-73) Lymphocytes (%) (Auto) 16 % (24-48) Monocytes (%) (Auto) 13 % (0-9) Eosinophils (%) (Auto) 0 % (0-3) Basophils (%) (Auto) 0 % (0-3) Neutrophils # (Auto) 8.0 x10^3/uL (1.8-7.7) Lymphocytes # (Auto) 1.9 x10^3/uL (1.0-4.8) Monocytes # (Auto) 1.5 x10^3/uL (0.0-1.1) Eosinophils # (Auto) 0.0 x10^3/uL (0.0-0.7) Basophils # (Auto) 0.0 x10^3/uL (0.0-0.2) Sodium Level 142 mmol/L (136-145) Potassium Level 4.4 mmol/L (3.5-5.1) Chloride Level 108 mmol/L (98-107) Carbon Dioxide Level 25 mmol/L (21-32) Anion Gap 9 (6-14) Blood Urea Nitrogen 29 mg/dL (8-26) Creatinine 1.9 mg/dL (0.7-1.3) Estimated GFR (Cockcroft-Gault) 42.4 Glucose Level 170 mg/dL (70-99) Calcium Level 8.0 mg/dL (8.5-10.1) Procalcitonin < 0.10 ng/mL (0.00-0.10) Laboratory Tests Test 12/04/20 07:33 12/04/20 11:00 12/04/20 16:26 12/04/20 20:52 Glucose (Fingerstick) 138 mg/dL (70-99) 241 mg/dL (70-99) 447 mg/dL (70-99) 256 mg/dL (70-99) Test 12/05/20 03:30 White Blood Count 11.4 x10^3/uL (4.0-11.0) Red Blood Count 4.93 x10^6/uL (4.30-5.70) Hemoglobin 13.1 g/dL (13.0-17.5) Hematocrit 40.5 % (39.0-53.0) Mean Corpuscular Volume 82 fL (79-100) Mean Corpuscular Hemoglobin 27 pg (25-35) Mean Corpuscular Hemoglobin Concent 32 g/dL (31-37) Red Cell Distribution Width 14.6 % (11.5-14.5) Platelet Count 402 x10^3/uL (140-400) Neutrophils (%) (Auto) 70 % (31-73) Lymphocytes (%) (Auto) 16 % (24-48) Monocytes (%) (Auto) 13 % (0-9) Eosinophils (%) (Auto) 0 % (0-3) Basophils (%) (Auto) 0 % (0-3) Neutrophils # (Auto) 8.0 x10^3/uL (1.8-7.7) Lymphocytes # (Auto) 1.9 x10^3/uL (1.0-4.8) Monocytes # (Auto) 1.5 x10^3/uL (0.0-1.1) Eosinophils # (Auto) 0.0 x10^3/uL (0.0-0.7) Basophils # (Auto) 0.0 x10^3/uL (0.0-0.2) Sodium Level 142 mmol/L (136-145) Potassium Level 4.4 mmol/L (3.5-5.1) Chloride Level 108 mmol/L (98-107) Carbon Dioxide Level 25 mmol/L (21-32) Anion Gap 9 (6-14) Blood Urea Nitrogen 29 mg/dL (8-26) Creatinine 1.9 mg/dL (0.7-1.3) Estimated GFR (Cockcroft-Gault) 42.4 Glucose Level 170 mg/dL (70-99) Calcium Level 8.0 mg/dL (8.5-10.1) Procalcitonin < 0.10 ng/mL (0.00-0.10) Medications Active Scripts Medications Dose Route/Sig Max Daily Dose Days Date Category Ventolin Hfa Inhaler (Albuterol Sulfate) 18 Gm Hfa.aer.ad 2 Puff INH Q4HRS 12/01/20 Reported Fluticasone Propionate Nasal [place] (Fluticasone Propionate) 16 Gm [place].susp 2 [place] NS DAILY 12/01/20 Reported Benzonatate 100 Mg Capsule 1 Cap PO TID 12/01/20 Reported Xalatan (Latanoprost) 2.5 Ml Drops 1 Drop EACHEYE QHS 12/01/20 Reported Mucinex Fast-Max Bjvl-Snv-Ovjp (Phenylephrine/Dm/Acetaminop/GG) 1 Each Capsule 1 Cap PO BID 10 12/01/20 Reported Famotidine 40 Mg Tablet 40 Mg PO HS 12/01/20 Reported Actos (Pioglitazone Hcl) 15 Mg Tablet 1 Tab PO DAILY 30 12/01/20 Reported Losartan Potassium 100 Mg Tablet 100 Mg PO DAILY 12/01/20 Reported Amlodipine Besylate 10 Mg Tablet 10 Mg PO DAILY 12/01/20 Reported Fish Oil 1,200 Mg Fish Oil (Fish Oil/Dha/Epa) 1 Each Capsule 1 Each PO 03/12/15 Reported Aspir 81 (Aspirin) 81 Mg Tablet.dr 1 Tab PO DAILY 03/12/15 Reported Atorvastatin Calcium 20 Mg Tablet 1 Tab PO DAILY 03/12/15 Reported Kombiglyze Xr 5-1,000 Mg Tab (Saxagliptin Hcl/Metformin Hcl) 1 Each Tbmp.24hr 1 Tab PO DAILY 03/12/15 Reported Comments CXR IMPRESSION: Diffuse interstitial infiltrate likely superimposed on chronic interstitial changes. Impression . 1. Persistent nonproductive cough for the past 1 month with bilateral diffuse interstitial infiltrates. No old x-ray available for comparison. He also has hypoxic respiratory failure. The etiology of his symptoms can be multifactorial and includes. A. COVID-19 viral pneumonia. B. less likely chronic interstitial lung disease. C. Atypical superimposed bacterial infection such as mycoplasma since he had diarrhea as well. 2. No significant tobacco history. 3. Abnormal chest x-ray with bilateral interstitial infiltrates. Plan . Continue present oxygen to keep saturation 90,% 6 min walk prior to D/C add flonase Positive COVID infection Continue ABX: now off Rocephin, finish full course of Azithromycin Continue Remdesivir for full course Continue steroids, will need full ten day course, taper slowly symptomatic tx. of cough DVT prophylaxis with Lovenox. Continue steroid inhaler PRN antitussive Discussed with RN. Pt. is FULL CODE KRISTIN [place] MD Dec 05, 2020 07:16
[2020-12-05] MEDS: FLUTICASONE 50MCG/NASAL SPRAY 16GM BOTTLE. NS SCH (10:05)
[2020-12-05] MEDS: guaiFENesin DM 200MG/20MG 10 ML SYRUP PO PRN ×2 (10:05→14:26)
[2020-12-05] MEDS: FLUTICASONE/VILANTEROL 100/25 INHALER. INH SCH (10:05)
[2020-12-05] MEDS: LACTOBACILLUS RHAMNOSUS GG 1 CAPSULE. PO SCH ×2 (10:05→20:44)
[2020-12-05] MEDS: BENZONATATE 100 MG CAPSULE. PO SCH ×3 (10:06→20:47)
[2020-12-05] MEDS: ASPIRIN ENTERIC COATED 81 MG TABLET.DR. PO SCH (10:06)
[2020-12-05] MEDS: ZINC SULFATE 220 MG CAPSULE. PO SCH (10:07)
[2020-12-05] MEDS: INSULIN LISPRO 300 UNITS/3 ML VIAL. SQ SCH ×3 (10:11→17:33)
[2020-12-05] MEDS: INSULIN GLARGINE SYRINGE. SQ SCH ×2 (10:15→20:46)
[2020-12-05 11:00] VITALS: BP 146/76
[2020-12-05] MEDS: REMDESIVIR 100mg in NORMAL SALINE 250ML X 4 DAYS IV SCH (14:26)
[2020-12-05 15:00] VITALS: BP 143/73
[2020-12-05 19:00] VITALS: BP 151/81
--- NOTE | 2020-12-05 20:25 | PDOC ---
[facility] PROGRESS NOTE Date of Service DOS: DATE: 12/05/20 TIME: 20:24 Chief Complaint Chief Complaint Assessment/Plan Acute respiratory failure with hypoxia COVID-19 PUI DM2 hyperglycemia RORO Vasomotor nephropathy Severe malnutrition Plan: Will admit patient with pulmonology consult Chest x-ray admission showed diffuse interstitial infiltrates; will treat with Rocephin and doxycycline COVID-19 test pending; will treat with IV steroids supportive care If COVID-19 is positive, will initiate treatment with remdesivir Basal/prandial insulin; A1c pending Resume home medications FEN - ADA diet PPX - Lovenox FULL CODE Dispo - inpatient for above History of Present Illness History of Present Illness Patient 68-year-old male with past medical history of type 2 diabetes presents to the ER with complaints of nonproductive cough over the past month. He reports associated nausea, vomiting, and diarrhea over the past 5 days. He does note his is COVID-19 positive at home. Upon arrival in the ER his O2 saturation was 85% on room air. He was placed on 4 L nasal cannula with improvement. Will make patient further medical management. 12/02: Patient seen and evaluated. Afebrile overnight. Currently saturating 97% on 4 L O2. He is COVID-19 positive. Provide albuterol inhaler and initiate remdesivir. Charts and labs reviewed. 12/03. Patient is afebrile, currently breathing on 6 L nasal cannula. Diarrhea improved. Remdesivir day 2/5. Continue steroids, antibiotics, and supportive care. Complains of a cough, will provide Tessalon Perles. 12/04: Afebrile. Breathing on 6 L nasal cannula. Continue remdesivir days 3/5, follow LFTs. Continue steroids, antibiotics, supportive care. 12/05: Patient afebrile. Intermittently breathing on 4-6 L nasal cannula. Procalcitonin <0.1. Will discontinue antibiotics. Continue treatment with steroids and remdesivir day 4/5. Continue to follow LFTs. Vitals/I&O Vitals/I&O: Vital Signs Date Time Temp Pulse Resp B/P (MAP) Pulse Ox O2 Delivery O2 Flow Rate FiO2 12/05/20 15:00 97.9 79 20 143/73 (96) 92 Nasal Cannula 6.0 97.9 I & O 12/04/20 12/04/20 12/05/20 15:00 23:00 07:00 Intake Total 700 ml 240 ml Output Total 500 ml Balance 700 ml -260 ml Physical Exam General: Alert Heart: Regular rate Abdomen: Normal bowel sounds, Soft Extremities: No clubbing, No cyanosis Skin: No rashes, No breakdown Labs Labs: Laboratory Tests Test 12/04/20 20:52 12/05/20 03:30 12/05/20 11:56 12/05/20 14:45 Glucose (Fingerstick) 256 mg/dL (70-99) 264 mg/dL (70-99) 299 mg/dL (70-99) White Blood Count 11.4 x10^3/uL (4.0-11.0) Red Blood Count 4.93 x10^6/uL (4.30-5.70) Hemoglobin 13.1 g/dL (13.0-17.5) Hematocrit 40.5 % (39.0-53.0) Mean Corpuscular Volume 82 fL (79-100) Mean Corpuscular Hemoglobin 27 pg (25-35) Mean Corpuscular Hemoglobin Concent 32 g/dL (31-37) Red Cell Distribution Width 14.6 % (11.5-14.5) Platelet Count 402 x10^3/uL (140-400) Neutrophils (%) (Auto) 70 % (31-73) Lymphocytes (%) (Auto) 16 % (24-48) Monocytes (%) (Auto) 13 % (0-9) Eosinophils (%) (Auto) 0 % (0-3) Basophils (%) (Auto) 0 % (0-3) Neutrophils # (Auto) 8.0 x10^3/uL (1.8-7.7) Lymphocytes # (Auto) 1.9 x10^3/uL (1.0-4.8) Monocytes # (Auto) 1.5 x10^3/uL (0.0-1.1) Eosinophils # (Auto) 0.0 x10^3/uL (0.0-0.7) Basophils # (Auto) 0.0 x10^3/uL (0.0-0.2) Sodium Level 142 mmol/L (136-145) Potassium Level 4.4 mmol/L (3.5-5.1) Chloride Level 108 mmol/L (98-107) Carbon Dioxide Level 25 mmol/L (21-32) Anion Gap 9 (6-14) Blood Urea Nitrogen 29 mg/dL (8-26) Creatinine 1.9 mg/dL (0.7-1.3) Estimated GFR (Cockcroft-Gault) 42.4 Glucose Level 170 mg/dL (70-99) Calcium Level 8.0 mg/dL (8.5-10.1) Procalcitonin < 0.10 ng/mL (0.00-0.10) Test 12/05/20 16:44 Glucose (Fingerstick) 328 mg/dL (70-99) Assessment and Plan Assessmemt and Plan Problems Medical Problems: (1) Acute renal failure Status: Acute (2) Acute respiratory failure Status: Acute (3) Diarrhea Status: Acute (4) Person under investigation for COVID-19 Status: Acute (5) Pneumonia of both lower lobes Status: Acute Comment Review of Relevant I have reviewed the following items ryan (where applicable) has been applied. Medications: Current Medications Medications (Trade) Dose Ordered Sig/Khoa Route PRN Reason Start Time Stop Time Status Last Admin Dose Admin Insulin Glargine (Lantus Syringe) 16 unit Q12HR SQ 12/04/20 21:00 12/05/20 10:15 Insulin Human Lispro (HumaLOG) 10 units TIDWMEALS SQ 12/05/20 08:00 12/05/20 17:33 Fluticasone Propionate (Flonase) 2 spray DAILY NS 12/05/20 09:00 12/05/20 10:05 Justifications for Admission Other Justification Acute respiratory failure with hypoxia, COVID-19 ASUNCION SAENZ MD Dec 05, 2020 20:25
[2020-12-05] MEDS: LATANOPROST 0.005% OPHTH SOLUTION 2.5ML BOTTLE. OS SCH (20:43)
[2020-12-05] MEDS: PSYLLIUM HUSK (SUGAR FREE) 1 PKT PACKET PO SCH (20:44)
[2020-12-05] MEDS: ENOXAPARIN 40 MG/0.4 ML SYRINGE. SQ SCH (20:44)
[2020-12-05] MEDS: ATORVASTATIN CALCIUM 20 MG TABLET PO SCH (20:44)
[2020-12-05 23:00] VITALS: BP 152/90
[2020-12-06 03:00] VITALS: BP 157/95
[2020-12-06 05:50] LABS: CALCIUM 8.3 mg/dL (8.5-10.1); CREATININE 1.7 mg/dL (0.7-1.3); GFR 48.2
[2020-12-06 05:52] LABS: ALBUMIN 1.8 g/dL (3.4-5.0); DIRECT BILIRUBIN 0.1 mg/dL (0.0-0.2); TOTAL BILIRUBIN 0.4 mg/dL (0.2-1.0); TOTAL PROTEIN 5.2 g/dL (6.4-8.2)
[2020-12-06] MEDS: DEXAMETHASONE SOD PHOS 4 MG/ML VIAL IVP SCH (06:04)
[2020-12-06 07:00] VITALS: BP 145/81
[2020-12-06] MEDS: INSULIN LISPRO 300 UNITS/3 ML VIAL. SQ SCH ×3 (08:00→17:01)
[2020-12-06] MEDS: FLUTICASONE 50MCG/NASAL SPRAY 16GM BOTTLE. NS SCH (09:00)
[2020-12-06] MEDS: LACTOBACILLUS RHAMNOSUS GG 1 CAPSULE. PO SCH ×2 (09:17→20:31)
[2020-12-06] MEDS: ZINC SULFATE 220 MG CAPSULE. PO SCH (09:17)
[2020-12-06] MEDS: BENZONATATE 100 MG CAPSULE. PO SCH ×3 (09:17→20:31)
[2020-12-06] MEDS: ASPIRIN ENTERIC COATED 81 MG TABLET.DR. PO SCH (09:17)
[2020-12-06] MEDS: FLUTICASONE/VILANTEROL 100/25 INHALER. INH SCH (09:17)
--- NOTE | 2020-12-06 09:29 | PDOC ---
[facility] PROGRESS NOTE Date of Service DOS: DATE: 12/06/20 TIME: 09:27 Chief Complaint Chief Complaint Assessment/Plan Acute respiratory failure with hypoxia COVID-19 PUI DM2 hyperglycemia RORO Vasomotor nephropathy Severe malnutrition Plan: Will admit patient with pulmonology consult Chest x-ray admission showed diffuse interstitial infiltrates; will treat with Rocephin and doxycycline COVID-19 test pending; will treat with IV steroids supportive care If COVID-19 is positive, will initiate treatment with remdesivir Basal/prandial insulin; A1c pending Resume home medications FEN - ADA diet PPX - Lovenox FULL CODE Dispo - inpatient for above History of Present Illness History of Present Illness Patient 68-year-old male with past medical history of type 2 diabetes presents to the ER with complaints of nonproductive cough over the past month. He reports associated nausea, vomiting, and diarrhea over the past 5 days. He does note his is COVID-19 positive at home. Upon arrival in the ER his O2 saturation was 85% on room air. He was placed on 4 L nasal cannula with improvement. Will make patient further medical management. 12/02: Patient seen and evaluated. Afebrile overnight. Currently saturating 97% on 4 L O2. He is COVID-19 positive. Provide albuterol inhaler and initiate remdesivir. Charts and labs reviewed. 12/03. Patient is afebrile, currently breathing on 6 L nasal cannula. Diarrhea improved. Remdesivir day 2/5. Continue steroids, antibiotics, and supportive care. Complains of a cough, will provide Tessalon Perles. 12/04: Afebrile. Breathing on 6 L nasal cannula. Continue remdesivir days 3/5, follow LFTs. Continue steroids, antibiotics, supportive care. 12/05: Patient afebrile. Intermittently breathing on 4-6 L nasal cannula. Procalcitonin <0.1. Will discontinue antibiotics. Continue treatment with steroids and remdesivir day 4/5. Continue to follow LFTs. 12/06: Afebrile, breathing on 2 L nasal cannula. Remdesivir day 5/5, LFTs within normal limits. Will finish treatment with remdesivir and obtain 6-minute walk tomorrow. Hope to be able to discharge on room air. Vitals/I&O Vitals/I&O: Vital Signs Date Time Temp Pulse Resp B/P (MAP) Pulse Ox O2 Delivery O2 Flow Rate FiO2 12/06/20 07:00 97.5 70 20 145/81 (102) 94 Nasal Cannula 2.0 97.5 I & O 12/05/20 12/05/20 12/06/20 15:00 23:00 07:00 Intake Total 1150 ml 350 ml 540 ml Output Total 475 ml 350 ml 250 ml Balance 675 ml 0 ml 290 ml Physical Exam General: Alert Heart: Regular rate Abdomen: Normal bowel sounds, Soft Extremities: No clubbing, No cyanosis Skin: No rashes, No breakdown Labs Labs: Laboratory Tests Test 12/05/20 11:56 12/05/20 14:45 12/05/20 16:44 12/06/20 05:00 Glucose (Fingerstick) 264 mg/dL (70-99) 299 mg/dL (70-99) 328 mg/dL (70-99) Sodium Level 141 mmol/L (136-145) Potassium Level 4.0 mmol/L (3.5-5.1) Chloride Level 108 mmol/L (98-107) Carbon Dioxide Level 26 mmol/L (21-32) Anion Gap 7 (6-14) Blood Urea Nitrogen 30 mg/dL (8-26) Creatinine 1.7 mg/dL (0.7-1.3) Estimated GFR (Cockcroft-Gault) 48.2 Glucose Level 136 mg/dL (70-99) Calcium Level 8.3 mg/dL (8.5-10.1) Total Bilirubin 0.4 mg/dL (0.2-1.0) Direct Bilirubin 0.1 mg/dL (0.0-0.2) Aspartate Amino Transf (AST/SGOT) 25 U/L (15-37) Alanine Aminotransferase (ALT/SGPT) 48 U/L (16-63) Alkaline Phosphatase 65 U/L (46-116) Total Protein 5.2 g/dL (6.4-8.2) Albumin 1.8 g/dL (3.4-5.0) Test 12/06/20 08:13 Glucose (Fingerstick) 126 mg/dL (70-99) Assessment and Plan Assessmemt and Plan Problems Medical Problems: (1) Acute renal failure Status: Acute (2) Acute respiratory failure Status: Acute (3) Diarrhea Status: Acute (4) Person under investigation for COVID-19 Status: Acute (5) Pneumonia of both lower lobes Status: Acute Comment Review of Relevant I have reviewed the following items ryan (where applicable) has been applied. Justifications for Admission Other Justification Acute respiratory failure with hypoxia, COVID-19 ASUNCION SAENZ MD Dec 06, 2020 09:29
[2020-12-06] MEDS: INSULIN GLARGINE SYRINGE. SQ SCH ×2 (09:52→20:32)
[2020-12-06 11:00] VITALS: BP 120/72
--- NOTE | 2020-12-06 12:42 | PDOC ---
PULMONARY PROGRESS NOTES DATE: 12/06/20 TIME: 12:41 Subjective pt. remains on 2 liters N/C afebrile sob cough better Vitals Vital Signs Date Time Temp Pulse Resp B/P (MAP) Pulse Ox O2 Delivery O2 Flow Rate FiO2 12/06/20 11:00 97.1 81 22 120/72 (88) 99 Nasal Cannula 2.0 97.1 Comments on alert nc at no accessory muscle use obese ROS: No Nausea, No Chest Pain, No Abdominal Pain, No Increase Cough General: Alert, No acute distress Neuro Exam: Alert Extremities: No Edema Skin: No Rashes Labs Laboratory Tests Test 12/04/20 16:26 12/04/20 20:52 12/05/20 03:30 12/05/20 11:56 Glucose (Fingerstick) 447 mg/dL (70-99) 256 mg/dL (70-99) 264 mg/dL (70-99) White Blood Count 11.4 x10^3/uL (4.0-11.0) Red Blood Count 4.93 x10^6/uL (4.30-5.70) Hemoglobin 13.1 g/dL (13.0-17.5) Hematocrit 40.5 % (39.0-53.0) Mean Corpuscular Volume 82 fL (79-100) Mean Corpuscular Hemoglobin 27 pg (25-35) Mean Corpuscular Hemoglobin Concent 32 g/dL (31-37) Red Cell Distribution Width 14.6 % (11.5-14.5) Platelet Count 402 x10^3/uL (140-400) Neutrophils (%) (Auto) 70 % (31-73) Lymphocytes (%) (Auto) 16 % (24-48) Monocytes (%) (Auto) 13 % (0-9) Eosinophils (%) (Auto) 0 % (0-3) Basophils (%) (Auto) 0 % (0-3) Neutrophils # (Auto) 8.0 x10^3/uL (1.8-7.7) Lymphocytes # (Auto) 1.9 x10^3/uL (1.0-4.8) Monocytes # (Auto) 1.5 x10^3/uL (0.0-1.1) Eosinophils # (Auto) 0.0 x10^3/uL (0.0-0.7) Basophils # (Auto) 0.0 x10^3/uL (0.0-0.2) Sodium Level 142 mmol/L (136-145) Potassium Level 4.4 mmol/L (3.5-5.1) Chloride Level 108 mmol/L (98-107) Carbon Dioxide Level 25 mmol/L (21-32) Anion Gap 9 (6-14) Blood Urea Nitrogen 29 mg/dL (8-26) Creatinine 1.9 mg/dL (0.7-1.3) Estimated GFR (Cockcroft-Gault) 42.4 Glucose Level 170 mg/dL (70-99) Calcium Level 8.0 mg/dL (8.5-10.1) Procalcitonin < 0.10 ng/mL (0.00-0.10) Test 12/05/20 14:45 12/05/20 16:44 12/06/20 05:00 12/06/20 08:13 Glucose (Fingerstick) 299 mg/dL (70-99) 328 mg/dL (70-99) 126 mg/dL (70-99) Sodium Level 141 mmol/L (136-145) Potassium Level 4.0 mmol/L (3.5-5.1) Chloride Level 108 mmol/L (98-107) Carbon Dioxide Level 26 mmol/L (21-32) Anion Gap 7 (6-14) Blood Urea Nitrogen 30 mg/dL (8-26) Creatinine 1.7 mg/dL (0.7-1.3) Estimated GFR (Cockcroft-Gault) 48.2 Glucose Level 136 mg/dL (70-99) Calcium Level 8.3 mg/dL (8.5-10.1) Total Bilirubin 0.4 mg/dL (0.2-1.0) Direct Bilirubin 0.1 mg/dL (0.0-0.2) Aspartate Amino Transf (AST/SGOT) 25 U/L (15-37) Alanine Aminotransferase (ALT/SGPT) 48 U/L (16-63) Alkaline Phosphatase 65 U/L (46-116) Total Protein 5.2 g/dL (6.4-8.2) Albumin 1.8 g/dL (3.4-5.0) Test 12/06/20 11:46 Glucose (Fingerstick) 238 mg/dL (70-99) Laboratory Tests Test 12/05/20 14:45 12/05/20 16:44 12/06/20 05:00 12/06/20 08:13 Glucose (Fingerstick) 299 mg/dL (70-99) 328 mg/dL (70-99) 126 mg/dL (70-99) Sodium Level 141 mmol/L (136-145) Potassium Level 4.0 mmol/L (3.5-5.1) Chloride Level 108 mmol/L (98-107) Carbon Dioxide Level 26 mmol/L (21-32) Anion Gap 7 (6-14) Blood Urea Nitrogen 30 mg/dL (8-26) Creatinine 1.7 mg/dL (0.7-1.3) Estimated GFR (Cockcroft-Gault) 48.2 Glucose Level 136 mg/dL (70-99) Calcium Level 8.3 mg/dL (8.5-10.1) Total Bilirubin 0.4 mg/dL (0.2-1.0) Direct Bilirubin 0.1 mg/dL (0.0-0.2) Aspartate Amino Transf (AST/SGOT) 25 U/L (15-37) Alanine Aminotransferase (ALT/SGPT) 48 U/L (16-63) Alkaline Phosphatase 65 U/L (46-116) Total Protein 5.2 g/dL (6.4-8.2) Albumin 1.8 g/dL (3.4-5.0) Test 12/06/20 11:46 Glucose (Fingerstick) 238 mg/dL (70-99) Medications Active Scripts Medications Dose Route/Sig Max Daily Dose Days Date Category Ventolin Hfa Inhaler (Albuterol Sulfate) 18 Gm Hfa.aer.ad 2 Puff INH Q4HRS 12/01/20 Reported Fluticasone Propionate Nasal [place] (Fluticasone Propionate) 16 Gm [place].susp 2 [place] NS DAILY 12/01/20 Reported Benzonatate 100 Mg Capsule 1 Cap PO TID 12/01/20 Reported Xalatan (Latanoprost) 2.5 Ml Drops 1 Drop EACHEYE QHS 12/01/20 Reported Mucinex Fast-Max Rqys-Zjx-Ilbb (Phenylephrine/Dm/Acetaminop/GG) 1 Each Capsule 1 Cap PO BID 10 12/01/20 Reported Famotidine 40 Mg Tablet 40 Mg PO HS 12/01/20 Reported Actos (Pioglitazone Hcl) 15 Mg Tablet 1 Tab PO DAILY 30 12/01/20 Reported Losartan Potassium 100 Mg Tablet 100 Mg PO DAILY 12/01/20 Reported Amlodipine Besylate 10 Mg Tablet 10 Mg PO DAILY 12/01/20 Reported Fish Oil 1,200 Mg Fish Oil (Fish Oil/Dha/Epa) 1 Each Capsule 1 Each PO 03/12/15 Reported Aspir 81 (Aspirin) 81 Mg Tablet.dr 1 Tab PO DAILY 03/12/15 Reported Atorvastatin Calcium 20 Mg Tablet 1 Tab PO DAILY 03/12/15 Reported Kombiglyze Xr 5-1,000 Mg Tab (Saxagliptin Hcl/Metformin Hcl) 1 Each Tbmp.24hr 1 Tab PO DAILY 03/12/15 Reported Comments CXR IMPRESSION: Diffuse interstitial infiltrate likely superimposed on chronic interstitial changes. Impression . 1. Persistent nonproductive cough for the past 1 month with bilateral diffuse interstitial infiltrates. No old x-ray available for comparison. He also has hypoxic respiratory failure. The etiology of his symptoms can be multifactorial and includes. A. COVID-19 viral pneumonia. B. less likely chronic interstitial lung disease. C. Atypical superimposed bacterial infection such as mycoplasma since he had diarrhea as well. 2. No significant tobacco history. 3. Abnormal chest x-ray with bilateral interstitial infiltrates. Plan . Continue present oxygen to keep saturation 90,% 6 min walk prior to D/C cont flonase Positive COVID infection s/p abx Continue Remdesivir for full course Continue steroids, will need full ten day course, taper slowly symptomatic tx. of cough DVT prophylaxis with Lovenox. Continue steroid inhaler PRN antitussive Discussed with RN. Pt. is FULL CODE KRISTIN [place] MD Dec 06, 2020 12:42
[2020-12-06] MEDS: REMDESIVIR 100mg in NORMAL SALINE 250ML X 4 DAYS IV SCH (13:59)
[2020-12-06 15:00] VITALS: BP 138/76
[2020-12-06 19:00] VITALS: BP 138/75
[2020-12-06] MEDS: ENOXAPARIN 40 MG/0.4 ML SYRINGE. SQ SCH (20:31)
[2020-12-06] MEDS: ATORVASTATIN CALCIUM 20 MG TABLET PO SCH (20:31)
[2020-12-06] MEDS: LATANOPROST 0.005% OPHTH SOLUTION 2.5ML BOTTLE. OS SCH (20:33)
[2020-12-06 23:00] VITALS: BP 126/75
[2020-12-07 03:00] VITALS: BP 143/80
[2020-12-07 07:00] VITALS: BP 154/81
[2020-12-07 07:09] LABS: CALCIUM 8.1 mg/dL (8.5-10.1); CREATININE 1.6 mg/dL (0.7-1.3); GFR 51.7; POTASSIUM 3.5 mmol/L (3.5-5.1)
[2020-12-07] MEDS: INSULIN LISPRO 300 UNITS/3 ML VIAL. SQ SCH ×2 (08:00→11:19)
[2020-12-07] MEDS: BENZONATATE 100 MG CAPSULE. PO SCH (08:20)
[2020-12-07] MEDS: ASPIRIN ENTERIC COATED 81 MG TABLET.DR. PO SCH (08:20)
[2020-12-07] MEDS: ZINC SULFATE 220 MG CAPSULE. PO SCH (08:20)
[2020-12-07] MEDS: LACTOBACILLUS RHAMNOSUS GG 1 CAPSULE. PO SCH (08:20)
[2020-12-07] MEDS: DEXAMETHASONE SOD PHOS 4 MG/ML VIAL IVP SCH (08:20)
[2020-12-07] MEDS: FLUTICASONE 50MCG/NASAL SPRAY 16GM BOTTLE. NS SCH (08:21)
[2020-12-07] MEDS: FLUTICASONE/VILANTEROL 100/25 INHALER. INH SCH (08:21)
[2020-12-07] MEDS: INSULIN GLARGINE SYRINGE. SQ SCH (09:13)
--- NOTE | 2020-12-07 09:23 | PDOC ---
PULMONARY PROGRESS NOTES DATE: 12/07/20 TIME: 09:21 Subjective Patient remains afebrile, now on room air Reports continuation of cough that is nonproductive No increased shortness of breath Vitals Vital Signs Date Time Temp Pulse Resp B/P (MAP) Pulse Ox O2 Delivery O2 Flow Rate FiO2 12/07/20 07:00 97.5 76 18 154/81 (105) 92 Room Air 97.5 12/07/20 03:00 2.0 Comments alert nc at no accessory muscle use obese ROS: No Nausea, No Chest Pain, No Abdominal Pain, No Increase Cough General: Alert, No acute distress Neuro Exam: Alert Extremities: No Edema Skin: Warm, Dry Labs Laboratory Tests Test 12/05/20 11:56 12/05/20 14:45 12/05/20 16:44 12/06/20 05:00 Glucose (Fingerstick) 264 mg/dL (70-99) 299 mg/dL (70-99) 328 mg/dL (70-99) Sodium Level 141 mmol/L (136-145) Potassium Level 4.0 mmol/L (3.5-5.1) Chloride Level 108 mmol/L (98-107) Carbon Dioxide Level 26 mmol/L (21-32) Anion Gap 7 (6-14) Blood Urea Nitrogen 30 mg/dL (8-26) Creatinine 1.7 mg/dL (0.7-1.3) Estimated GFR (Cockcroft-Gault) 48.2 Glucose Level 136 mg/dL (70-99) Calcium Level 8.3 mg/dL (8.5-10.1) Total Bilirubin 0.4 mg/dL (0.2-1.0) Direct Bilirubin 0.1 mg/dL (0.0-0.2) Aspartate Amino Transf (AST/SGOT) 25 U/L (15-37) Alanine Aminotransferase (ALT/SGPT) 48 U/L (16-63) Alkaline Phosphatase 65 U/L (46-116) Total Protein 5.2 g/dL (6.4-8.2) Albumin 1.8 g/dL (3.4-5.0) Test 12/06/20 08:13 12/06/20 11:46 12/06/20 16:36 12/06/20 19:23 Glucose (Fingerstick) 126 mg/dL (70-99) 238 mg/dL (70-99) 311 mg/dL (70-99) 231 mg/dL (70-99) Test 12/07/20 05:35 12/07/20 07:29 Sodium Level 142 mmol/L (136-145) Potassium Level 3.5 mmol/L (3.5-5.1) Chloride Level 108 mmol/L (98-107) Carbon Dioxide Level 25 mmol/L (21-32) Anion Gap 9 (6-14) Blood Urea Nitrogen 26 mg/dL (8-26) Creatinine 1.6 mg/dL (0.7-1.3) Estimated GFR (Cockcroft-Gault) 51.7 Glucose Level 99 mg/dL (70-99) Calcium Level 8.1 mg/dL (8.5-10.1) Glucose (Fingerstick) 108 mg/dL (70-99) Laboratory Tests Test 12/06/20 11:46 12/06/20 16:36 12/06/20 19:23 12/07/20 05:35 Glucose (Fingerstick) 238 mg/dL (70-99) 311 mg/dL (70-99) 231 mg/dL (70-99) Sodium Level 142 mmol/L (136-145) Potassium Level 3.5 mmol/L (3.5-5.1) Chloride Level 108 mmol/L (98-107) Carbon Dioxide Level 25 mmol/L (21-32) Anion Gap 9 (6-14) Blood Urea Nitrogen 26 mg/dL (8-26) Creatinine 1.6 mg/dL (0.7-1.3) Estimated GFR (Cockcroft-Gault) 51.7 Glucose Level 99 mg/dL (70-99) Calcium Level 8.1 mg/dL (8.5-10.1) Test 12/07/20 07:29 Glucose (Fingerstick) 108 mg/dL (70-99) Medications Active Scripts Medications Dose Route/Sig Max Daily Dose Days Date Category Ventolin Hfa Inhaler (Albuterol Sulfate) 18 Gm Hfa.aer.ad 2 Puff INH Q4HRS 12/01/20 Reported Fluticasone Propionate Nasal [place] (Fluticasone Propionate) 16 Gm [place].susp 2 [place] NS DAILY 12/01/20 Reported Benzonatate 100 Mg Capsule 1 Cap PO TID 12/01/20 Reported Xalatan (Latanoprost) 2.5 Ml Drops 1 Drop EACHEYE QHS 12/01/20 Reported Mucinex Fast-Max Ldag-Aki-Vyjk (Phenylephrine/Dm/Acetaminop/GG) 1 Each Capsule 1 Cap PO BID 10 12/01/20 Reported Famotidine 40 Mg Tablet 40 Mg PO HS 12/01/20 Reported Actos (Pioglitazone Hcl) 15 Mg Tablet 1 Tab PO DAILY 30 12/01/20 Reported Losartan Potassium 100 Mg Tablet 100 Mg PO DAILY 12/01/20 Reported Amlodipine Besylate 10 Mg Tablet 10 Mg PO DAILY 12/01/20 Reported Fish Oil 1,200 Mg Fish Oil (Fish Oil/Dha/Epa) 1 Each Capsule 1 Each PO 03/12/15 Reported Aspir 81 (Aspirin) 81 Mg Tablet.dr 1 Tab PO DAILY 03/12/15 Reported Atorvastatin Calcium 20 Mg Tablet 1 Tab PO DAILY 03/12/15 Reported Kombiglyze Xr 5-1,000 Mg Tab (Saxagliptin Hcl/Metformin Hcl) 1 Each Tbmp.24hr 1 Tab PO DAILY 03/12/15 Reported Comments CXR IMPRESSION: Diffuse interstitial infiltrate likely superimposed on chronic interstitial changes. Impression . 1. Persistent nonproductive cough for the past 1 month with bilateral diffuse interstitial infiltrates. No old x-ray available for comparison. He also has hypoxic respiratory failure. The etiology of his symptoms can be multifactorial and includes. A. COVID-19 viral pneumonia. B. less likely chronic interstitial lung disease. C. Atypical superimposed bacterial infection such as mycoplasma since he had diarrhea as well. 2. No significant tobacco history. 3. Abnormal chest x-ray with bilateral interstitial infiltrates. Plan . 6 min walk prior to D/C Positive COVID infection Patient has completed full course of antibiotics Continue Remdesivir for full course Continue steroids, will need full ten day course, taper slowly, started on November 302020 symptomatic tx. of cough DVT prophylaxis with Lovenox. Continue steroid inhaler PRN antitussive Discussed with RN. Pt. is FULL CODE Okay for patient to discharge home today after 6-minute walk, we will sign off at this time please call with any questions or concerns thank you CECILIA TIDWELL MD Dec 07, 2020 09:23
--- NOTE | 2020-12-07 10:39 | PDOC ---
PROGRESS NOTES Date of Service: DATE: 12/07/20 TIME: 10:38 Chief Complaint Chief Complaint =HOSPITAL SUMMARY DATE OF ADMIT 11-30-20 DATE OF DISCHARGE 12-07-20 CONSULTS ========PULMONARY F/U PCP IN 3-5 DAYS COMPLICATIONS NONE D/C CONDITION GOOD D/C PLANNING 32 MIN DISCHARGE DX Acute respiratory failure with hypoxia, IMPROVED COVID-19 POS DM2 hyperglycemia RORO Vasomotor nephropathy Severe PROTEIN-CALORIC malnutrition Plan: Will admit patient with pulmonology consult OK FOR D/C TODAY 12-07 Chest x-ray admission showed diffuse interstitial infiltrates; will treat with Rocephin and doxycycline COVID-19 ; will treat with IV steroids supportive care COVID-19 is positive, treatment with remdesivir Basal/prandial insulin; A1c Resume home medications FEN - ADA diet PPX - Lovenox FULL CODE Dispo - inpatient for above History of Present Illness History of Present Illness REASON FOR HOSPITAL STAY Patient 68-year-old male with past medical history of type 2 diabetes presents to the ER with complaints of nonproductive cough over the past month. He reports associated nausea, vomiting, and diarrhea over the past 5 days. He does note his is COVID-19 positive at home. Upon arrival in the ER his O2 saturation was 85% on room air. He was placed on 4 L nasal cannula with improvement. Will make patient further medical management. 12/02: Patient seen and evaluated. Afebrile overnight. Currently saturating 97% on 4 L O2. He is COVID-19 positive. Provide albuterol inhaler and initiate remdesivir. Charts and labs reviewed. 12/03. Patient is afebrile, currently breathing on 6 L nasal cannula. Diarrhea improved. Remdesivir day 2/5. Continue steroids, antibiotics, and supportive care. Complains of a cough, will provide Tessalon Perles. 12/04: Afebrile. Breathing on 6 L nasal cannula. Continue remdesivir days 3/5, follow LFTs. Continue steroids, antibiotics, supportive care. 12/05: Patient afebrile. Intermittently breathing on 4-6 L nasal cannula. P rocalcitonin <0.1. Will discontinue antibiotics. Continue treatment with steroids and remdesivir day 02/15. Continue to follow LFTs. 12/06: Afebrile, breathing on 2 L nasal cannula. Remdesivir day 03/17, LFTs within normal limits. Will finish treatment with remdesivir and obtain 6-minute walk tomorrow. discharge on room air. 12-07 D/C TODAY, OK WITH PULMONARY Vitals Vitals Vital Signs Date Time Temp Pulse Resp B/P (MAP) Pulse Ox O2 Delivery O2 Flow Rate FiO2 12/07/20 08:00 Room Air 12/07/20 07:00 97.5 76 18 154/81 (105) 92 97.5 12/07/20 03:00 2.0 Physical Exam General: Alert, Oriented X3, Cooperative, No acute distress Heart: Regular rate Lungs: Clear Abdomen: Normal bowel sounds, Soft Extremities: No clubbing, No cyanosis Skin: No rashes, No breakdown Labs LABS Laboratory Tests Test 12/06/20 11:46 12/06/20 16:36 12/06/20 19:23 12/07/20 05:35 Glucose (Fingerstick) 238 mg/dL (70-99) 311 mg/dL (70-99) 231 mg/dL (70-99) Sodium Level 142 mmol/L (136-145) Potassium Level 3.5 mmol/L (3.5-5.1) Chloride Level 108 mmol/L (98-107) Carbon Dioxide Level 25 mmol/L (21-32) Anion Gap 9 (6-14) Blood Urea Nitrogen 26 mg/dL (8-26) Creatinine 1.6 mg/dL (0.7-1.3) Estimated GFR (Cockcroft-Gault) 51.7 Glucose Level 99 mg/dL (70-99) Calcium Level 8.1 mg/dL (8.5-10.1) Test 12/07/20 07:29 Glucose (Fingerstick) 108 mg/dL (70-99) Assessment and Plan Assessmemt and Plan Problems Medical Problems: (1) Acute renal failure Status: Acute (2) Acute respiratory failure Status: Acute (3) Diarrhea Status: Acute (4) Person under investigation for COVID-19 Status: Acute (5) Pneumonia of both lower lobes Status: Acute Comment Review of Relevant I have reviewed the following items ryan (where applicable) has been applied. Labs Laboratory Tests Test 12/05/20 11:56 12/05/20 14:45 12/05/20 16:44 12/06/20 05:00 Glucose (Fingerstick) 264 mg/dL (70-99) 299 mg/dL (70-99) 328 mg/dL (70-99) Sodium Level 141 mmol/L (136-145) Potassium Level 4.0 mmol/L (3.5-5.1) Chloride Level 108 mmol/L (98-107) Carbon Dioxide Level 26 mmol/L (21-32) Anion Gap 7 (6-14) Blood Urea Nitrogen 30 mg/dL (8-26) Creatinine 1.7 mg/dL (0.7-1.3) Estimated GFR (Cockcroft-Gault) 48.2 Glucose Level 136 mg/dL (70-99) Calcium Level 8.3 mg/dL (8.5-10.1) Total Bilirubin 0.4 mg/dL (0.2-1.0) Direct Bilirubin 0.1 mg/dL (0.0-0.2) Aspartate Amino Transf (AST/SGOT) 25 U/L (15-37) Alanine Aminotransferase (ALT/SGPT) 48 U/L (16-63) Alkaline Phosphatase 65 U/L (46-116) Total Protein 5.2 g/dL (6.4-8.2) Albumin 1.8 g/dL (3.4-5.0) Test 12/06/20 08:13 12/06/20 11:46 12/06/20 16:36 12/06/20 19:23 Glucose (Fingerstick) 126 mg/dL (70-99) 238 mg/dL (70-99) 311 mg/dL (70-99) 231 mg/dL (70-99) Test 12/07/20 05:35 12/07/20 07:29 Sodium Level 142 mmol/L (136-145) Potassium Level 3.5 mmol/L (3.5-5.1) Chloride Level 108 mmol/L (98-107) Carbon Dioxide Level 25 mmol/L (21-32) Anion Gap 9 (6-14) Blood Urea Nitrogen 26 mg/dL (8-26) Creatinine 1.6 mg/dL (0.7-1.3) Estimated GFR (Cockcroft-Gault) 51.7 Glucose Level 99 mg/dL (70-99) Calcium Level 8.1 mg/dL (8.5-10.1) Glucose (Fingerstick) 108 mg/dL (70-99) Laboratory Tests Test 12/06/20 11:46 12/06/20 16:36 12/06/20 19:23 12/07/20 05:35 Glucose (Fingerstick) 238 mg/dL (70-99) 311 mg/dL (70-99) 231 mg/dL (70-99) Sodium Level 142 mmol/L (136-145) Potassium Level 3.5 mmol/L (3.5-5.1) Chloride Level 108 mmol/L (98-107) Carbon Dioxide Level 25 mmol/L (21-32) Anion Gap 9 (6-14) Blood Urea Nitrogen 26 mg/dL (8-26) Creatinine 1.6 mg/dL (0.7-1.3) Estimated GFR (Cockcroft-Gault) 51.7 Glucose Level 99 mg/dL (70-99) Calcium Level 8.1 mg/dL (8.5-10.1) Test 12/07/20 07:29 Glucose (Fingerstick) 108 mg/dL (70-99) Microbiology 11/30/20 Blood Culture - Final, Complete NO GROWTH AFTER 5 DAYS Medications Current Medications Dexamethasone Sodium Phosphate (Decadron) 10 mg 1X ONCE IV Last administered on 11/30/20at 19:22; Start 11/30/20 at 17:45; Stop 11/30/20 at 17:46; Status DC Ceftriaxone Sodium (Rocephin) 1 gm 1X ONCE IVP Last administered on 11/30/20at 19:22; Start 11/30/20 at 17:45; Stop 11/30/20 at 17:46; Status DC Azithromycin 250 ml @ 250 mls/hr 1X ONCE IV Last administered on 11/30/20at 19:22; Start 11/30/20 at 17:45; Stop 11/30/20 at 18:44; Status DC Insulin Glargine (Lantus Syringe) 10 unit QHS SQ Last administered on 11/30/20at 22:33; Start 11/30/20 at 23:00; Stop 12/01/20 at 12:56; Status DC Insulin Human Lispro (HumaLOG) 0-9 UNITS TIDWMEALS SQ Last administered on 12/04/20at 16:58; Start 12/01/20 at 08:00; Stop 12/04/20 at 20:05; Status DC Dextrose (Dextrose 50%-Water Syringe) 12.5 gm PRN Q15MIN PRN IV SEE COMMENTS; Start 11/30/20 at 22:00; Stop 12/04/20 at 20:05; Status DC Aspirin (Ecotrin) 81 mg DAILY PO Last administered on 12/07/20at 08:20; Start 12/01/20 at 09:00 Atorvastatin Calcium (Lipitor) 20 mg DAILY PO Last administered on 12/01/20at 08:05; Start 12/01/20 at 09:00; Stop 12/02/20 at 00:54; Status DC Dexamethasone Sodium Phosphate (Decadron) 6 mg DAILY07 IVP Last administered on 12/07/20at 08:20; Start 12/01/20 at 07:00 Guaifenesin (Robitussin Dm) 10 ml PRN Q6HRS PRN PO COUGH 1ST CHOICE Last administered on 12/05/20at 14:26; Start 11/30/20 at 22:00 Ondansetron HCl (Zofran) 4 mg PRN Q4HRS PRN IV NAUSEA/VOMITING 1ST CHOICE; Start 11/30/20 at 22:00 Acetaminophen (Tylenol) 650 mg PRN Q4HRS PRN PO TEMP OVER 100.4F OR MILD PAIN; Start 11/30/20 at 22:00; Stop 12/01/20 at 12:58; Status DC Docusate Sodium (Colace) 100 mg PRN BID PRN PO HARD STOOLS; Start 11/30/20 at 22:00 Psyllium Hydrophilic Mucilloid (Metamucil Fiber Packet) 1 pkt QHS PO Last administered on 12/03/20at 21:28; Start 12/01/20 at 21:00 Olanzapine (ZyPREXA ZYDIS) 5 mg PRN BID PRN PO ANXIETY / AGITATION Last administered on 12/01/20at 21:20; Start 11/30/20 at 22:00 Heparin Sodium (Porcine) (Heparin Sodium) 5,000 unit Q8HRS SQ Last administered on 12/01/20at 05:53; Start 11/30/20 at 22:00; Stop 12/01/20 at 07:38; Status DC Ondansetron HCl (Zofran) 4 mg PRN Q8HRS PRN IV NAUSEA/VOMITING; Start 11/30/20 at 23:15; Stop 12/01/20 at 23:14; Status UNV Morphine Sulfate (Morphine Sulfate) 2 mg PRN Q2HR PRN IV SEVERE PAIN 7-10; Start 11/30/20 at 23:15; Stop 12/01/20 at 23:14; Status DC Acetaminophen (Tylenol) 650 mg PRN Q4HRS PRN PO FEVER > 100.3'F; Start 11/30/20 at 23:15; Stop 12/01/20 at 23:14; Status UNV Pharmacy Consult (C.diff Med Screen By Rx) 1 each 1X ONCE MC Last administered on 12/01/20at 09:00; Start 12/01/20 at 04:15; Stop 12/01/20 at 04:16; Status DC Benzonatate (Tessalon Perle) 100 mg PRN TID PRN PO COUGH-3RD CHOICE Last administered on 12/02/20at 17:07; Start 12/01/20 at 07:30 Zinc Sulfate (Orazinc) 100 mg DAILY PO Last administered on 12/02/20at 07:57; Start 12/01/20 at 09:00; Stop 12/03/20 at 09:32; Status DC Ondansetron HCl (Zofran) 4 mg PRN Q6HRS PRN IVP NAUSEA/VOMITING; Start 12/01/20 at 07:45; Stop 12/02/20 at 15:10; Status DC Al Hydroxide/Mg Hydroxide (Mylanta Plus Xs) 30 ml PRN Q3HRS PRN PO HEARTBURN / GAS; Start 12/01/20 at 07:45 Calcium Carbonate/ Glycine (Tums) 500 mg PRN Q3HRS PRN PO UPSET STOMACH; Start 12/01/20 at 07:45 Acetaminophen (Tylenol) 650 mg PRN Q6HRS PRN PO Headaches, Temp > 101.5F; Start 12/01/20 at 07:45 Magnesium Hydroxide (Milk Of Magnesia) 2,400 mg PRN Q12HR PRN PO CONSTIPATION; Start 12/01/20 at 07:45 Bisacodyl (Dulcolax Supp) 10 mg PRN DAILY PRN MO CONSTIPATION; Start 12/01/20 at 07:45 Enoxaparin Sodium (Lovenox 40mg Syringe) 40 mg Q24H SQ Last administered on 12/06/20at 20:31; Start 12/01/20 at 21:00 Ceftriaxone Sodium (Rocephin) 1 gm Q24H IVP Last administered on 12/04/20at 08:27; Start 12/01/20 at 09:00; Stop 12/04/20 at 09:01; Status DC Azithromycin (Zithromax) 250 mg DAILY PO Last administered on 12/04/20at 08:27; Start 12/01/20 at 09:00; Stop 12/05/20 at 08:59; Status DC Fluticasone/ Vilanterol (Breo Ellipta 100-25 Mcg) 1 puff DAILY INH Last administered on 12/07/20at 08:21; Start 12/01/20 at 09:00 Insulin Glargine (Lantus Syringe) 20 unit QHS SQ Last administered on 12/03/20at 21:36; Start 12/01/20 at 21:00; Stop 12/04/20 at 20:05; Status DC Insulin Human Lispro (HumaLOG) 10 units TIDAC SQ Last administered on 12/04/20at 16:57; Start 12/01/20 at 16:30; Stop 12/04/20 at 20:05; Status DC Insulin Human Lispro (HumaLOG) 18 units 1X ONCE SQ Last administered on 12/01/20at 13:16; Start 12/01/20 at 13:00; Stop 12/01/20 at 13:01; Status DC Sodium Chloride 500 ml @ 500 mls/hr 1X ONCE IV Last administered on 12/01/20at 13:02; Start 12/01/20 at 13:00; Stop 12/01/20 at 13:59; Status DC Lactobacillus Rhamnosus (Culturelle) 1 cap BID PO Last administered on 12/07/20at 08:20; Start 12/01/20 at 21:00 Atorvastatin Calcium (Lipitor) 20 mg QHS PO Last administered on 12/06/20at 20:31; Start 12/02/20 at 21:00 Remdesivir 200 mg/ Sodium Chloride 210 ml @ 210 mls/hr 1X ONCE IV Last admin istered on 12/02/20at 14:50; Start 12/02/20 at 13:00; Stop 12/02/20 at 13:59; Status DC Remdesivir 100 mg/ Sodium Chloride 230 ml @ 460 mls/hr Q24H IV Last administered on 12/06/20at 13:59; Start 12/03/20 at 13:00; Stop 12/06/20 at 13:29; Status DC Albuterol Sulfate (Ventolin Hfa) 2 puff PRN Q4HRS PRN INH WHEEZING; Start 12/02/20 at 12:30 Latanoprost (Xalatan) 1 drop QHS OU ; Start 12/02/20 at 21:00; Stop 12/02/20 at 17:14; Status DC Latanoprost (Xalatan) 1 drop QHS OS Last administered on 12/05/20at 20:43; Start 12/02/20 at 21:00 Zinc Sulfate (Orazinc) 220 mg DAILY PO Last administered on 12/07/20at 08:20; Start 12/03/20 at 10:00; Stop 12/15/20 at 09:59 Benzonatate (Tessalon Perle) 100 mg [id number] PO Last administered on 12/07/20at 08:20; Start 12/03/20 at 21:00 Guaifenesin/ Codeine Phosphate (Robitussin Ac) 5 ml PRN Q6HRS PRN PO COUGH-2ND CHOICE; Start 12/03/20 at 15:45 Loperamide HCl (Imodium) 2 mg PRN Q15MIN PRN PO DIARRHEA Last administered on 12/04/20at 11:53; Start 12/04/20 at 11:30 Insulin Glargine (Lantus Syringe) 16 unit Q12HR SQ Last administered on 12/07/20at 09:13; Start 12/04/20 at 21:00 Insulin Human Lispro (HumaLOG) 10 units TIDWMEALS SQ Last administered on 12/06/20at 17:01; Start 12/05/20 at 08:00 Dextrose (Dextrose 50%-Water Syringe) 12.5 gm PRN Q15MIN PRN IV SEE COMMENTS; Start 12/04/20 at 20:15 Fluticasone Propionate (Flonase) 2 spray DAILY NS Last administered on 12/07/20at 08:21; Start 12/05/20 at 09:00 Active Scripts Active Reported Ventolin Hfa Inhaler (Albuterol Sulfate) 18 Gm Hfa.aer.ad 2 Puff INH Q4HRS Fluticasone Propionate Nasal [place] (Fluticasone Propionate) 16 Gm [place].susp 2 [place] NS DAILY Benzonatate 100 Mg Capsule 1 Cap PO TID Xalatan (Latanoprost) 2.5 Ml Drops 1 Drop EACHEYE QHS Mucinex Fast-Max [id number]-[id number] (Phenylephrine/Dm/Acetaminop/GG) 1 Each Capsule 1 Cap PO BID 10 Days Famotidine 40 Mg Tablet 40 Mg PO HS Actos (Pioglitazone Hcl) 15 Mg Tablet 1 Tab PO DAILY 30 Days Losartan Potassium 100 Mg Tablet 100 Mg PO DAILY Amlodipine Besylate 10 Mg Tablet 10 Mg PO DAILY Fish Oil 1,200 Mg Fish Oil (Fish Oil/Dha/Epa) 1 Each Capsule 1 Each PO Aspir 81 (Aspirin) 81 Mg Tablet.dr 1 Tab PO DAILY Atorvastatin Calcium 20 Mg Tablet 1 Tab PO DAILY Kombiglyze Xr 5-1,000 Mg Tab (Saxagliptin Hcl/Metformin Hcl) 1 Each Tbmp.24hr 1 Tab PO DAILY Vitals/I & O Vital Sign - Last 24 Hours 12/06/20 12/06/20 12/06/20 12/06/20 11:00 15:00 19:00 20:00 Temp 97.1 97.5 96.2 97.1 97.5 96.2 Pulse 81 79 80 Resp 22 18 B/P (MAP) 120/72 (88) 138/76 (96) 138/75 (96) Pulse Ox 99 94 94 O2 Delivery Nasal Cannula Nasal Cannula Nasal Cannula Room Air O2 Flow Rate 2.0 2.0 2.0 12/06/20 12/07/20 12/07/20 12/07/20 23:00 03:00 07:00 08:00 Temp 96.6 96.7 97.5 96.6 96.7 97.5 Pulse 89 75 76 Resp 18 20 18 B/P (MAP) 126/75 (92) 143/80 (101) 154/81 (105) Pulse Ox 96 96 92 O2 Delivery Nasal Cannula Nasal Cannula Room Air Room Air O2 Flow Rate 2.0 2.0 Intake and Output 12/06/20 12/06/20 12/07/20 15:00 23:00 07:00 Intake Total 800 ml 400 ml 200 ml Output Total 500 ml 420 ml Balance 300 ml -20 ml 200 ml Justicifation of Admission Dx: Justifications for Admission: Justification of Admission Dx: Yes Comminuty Aquired Pneumonia: Hypoxemia JIN KELLOGG MD Dec 07, 2020 10:38
[2020-12-07 11:00] VITALS: BP 131/77
--- NOTE | 2020-12-07 12:06 | PDOC3 ---
Discharge Summary Date of Admission: Dec 01, 2020 Date of Discharge: Dec 07, 2020 Follow-Up: 3-5 days Admitting Diagnosis comment: =HOSPITAL SUMMARY DATE OF ADMIT 11-30-20 DATE OF DISCHARGE 12-07-20 CONSULTS ========PULMONARY F/U PCP WITH IN 3-5 DAYS COMPLICATIONS NONE D/C CONDITION GOOD D/C PLANNING 32 MIN DISCHARGE DX Acute respiratory failure with hypoxia, IMPROVED COVID-19 POS DM2 hyperglycemia RORO Vasomotor nephropathy Severe PROTEIN-CALORIC malnutrition Plan: Will admit patient with pulmonology consult OK FOR D/C TODAY 12-07 Chest x-ray admission showed diffuse interstitial infiltrates; will treat with Rocephin and doxycycline COVID-19 ; will treat with IV steroids supportive care COVID-19 is positive, treatment with remdesivir Basal/prandial insulin; A1c Resume home medications FEN - ADA diet PPX - Lovenox FULL CODE Dispo - inpatient for above History of Present Illness History of Present Illness REASON FOR HOSPITAL STAY 68-year-old male with past medical history of type 2 diabetes presents to the ER with complaints of nonproductive cough over the past month. He reports associated nausea, vomiting, and diarrhea over the past 5 days. He does note his is COVID-19 positive at home. Upon arrival in the ER his O2 saturation was 85% on room air. He was placed on 4 L nasal cannula with improvement. Will make patient further medical management. COVID POS HERE 12/02: Patient seen and evaluated. Afebrile overnight. Currently saturating 97% on 4 L O2. He is COVID-19 positive. Provide albuterol inhaler and initiate rem desivir. Charts and labs reviewed. 12/03. Patient is afebrile, currently breathing on 6 L nasal cannula. Diarrhea improved. Remdesivir day 2/5. Continue steroids, antibiotics, and supportive care. Complains of a cough, will provide Tessalon Perles. 12/04: Afebrile. Breathing on 6 L nasal cannula. Continue remdesivir days 3/5, follow LFTs. Continue steroids, antibiotics, supportive care. 12/05: Patient afebrile. Intermittently breathing on 4-6 L nasal cannula. Procalcitonin <0.1. Will discontinue antibiotics. Continue treatment with steroids and remdesivir day /. Continue to follow LFTs. 12/06: Afebrile, breathing on 2 L nasal cannula. Remdesivir day 03/17, LFTs within normal limits. Will finish treatment with remdesivir and obtain 6-minute walk tomorrow. discharge on room air. 12-07 D/C TODAY, OK WITH PULMONARY Vitals Vitals Vital Signs Date Time Temp Pulse Resp B/P (MAP) Pulse Ox O2 Delivery O2 Flow Rate FiO2 12/07/20 08:00 Room Air 12/07/20 07:00 97.5 76 18 154/81 (105) 92 97.5 12/07/20 03:00 2.0 Physical Exam General: Alert, Oriented X3, Cooperative, No acute distress Heart: Regular rate Lungs: Clear Abdomen: Normal bowel sounds, Soft Extremities: No clubbing, No cyanosis Skin: No rashes, No breakdown FINAL DIAGNOSIS Problems Medical Problems: (1) Acute renal failure Status: Acute (2) Acute respiratory failure Status: Acute (3) Diarrhea Status: Acute (4) Person under investigation for COVID-19 Status: Acute (5) Pneumonia of both lower lobes Status: Acute Brief Hospital Course Mr. Mclaughlin is a 70 old [sex] who presented with [ COVID POS PNEUMONIA WITH HYPOXIA] CONDITION AT DISCHARGE: Improved Discharge Medications Current Medications Dexamethasone Sodium Phosphate (Decadron) 10 mg 1X ONCE IV Last administered on 11/30/20at 19:22; Start 11/30/20 at 17:45; Stop 11/30/20 at 17:46; Status DC Ceftriaxone Sodium (Rocephin) 1 gm 1X ONCE IVP Last administered on 11/30/20at 19:22; Start 11/30/20 at 17:45; Stop 11/30/20 at 17:46; Status DC Azithromycin 250 ml @ 250 mls/hr 1X ONCE IV Last administered on 11/30/20at 19:22; Start 11/30/20 at 17:45; Stop 11/30/20 at 18:44; Status DC Insulin Glargine (Lantus Syringe) 10 unit QHS SQ Last administered on 11/30/20at 22:33; Start 11/30/20 at 23:00; Stop 12/01/20 at 12:56; Status DC Insulin Human Lispro (HumaLOG) 0-9 UNITS TIDWMEALS SQ Last administered on 12/04/20at 16:58; Start 12/01/20 at 08:00; Stop 12/04/20 at 20:05; Status DC Dextrose (Dextrose 50%-Water Syringe) 12.5 gm PRN Q15MIN PRN IV SEE COMMENTS; Start 11/30/20 at 22:00; Stop 12/04/20 at 20:05; Status DC Aspirin (Ecotrin) 81 mg DAILY PO Last administered on 12/07/20at 08:20; Start 12/01/20 at 09:00 Atorvastatin Calcium (Lipitor) 20 mg DAILY PO Last administered on 12/01/20at 08:05; Start 12/01/20 at 09:00; Stop 12/02/20 at 00:54; Status DC Dexamethasone Sodium Phosphate (Decadron) 6 mg DAILY07 IVP Last administered on 12/07/20at 08:20; Start 12/01/20 at 07:00 Guaifenesin (Robitussin Dm) 10 ml PRN Q6HRS PRN PO COUGH 1ST CHOICE Last administered on 12/05/20at 14:26; Start 11/30/20 at 22:00 Ondansetron HCl (Zofran) 4 mg PRN Q4HRS PRN IV NAUSEA/VOMITING 1ST CHOICE; Start 11/30/20 at 22:00 Acetaminophen (Tylenol) 650 mg PRN Q4HRS PRN PO TEMP OVER 100.4F OR MILD PAIN; Start 11/30/20 at 22:00; Stop 12/01/20 at 12:58; Status DC Docusate Sodium (Colace) 100 mg PRN BID PRN PO HARD STOOLS; Start 11/30/20 at 22:00 Psyllium Hydrophilic Mucilloid (Metamucil Fiber Packet) 1 pkt QHS PO Last administered on 12/03/20at 21:28; Start 12/01/20 at 21:00 Olanzapine (ZyPREXA ZYDIS) 5 mg PRN BID PRN PO ANXIETY / AGITATION Last administered on 12/01/20at 21:20; Start 11/30/20 at 22:00 Heparin Sodium (Porcine) (Heparin Sodium) 5,000 unit Q8HRS SQ Last administered on 12/01/20at 05:53; Start 11/30/20 at 22:00; Stop 12/01/20 at 07:38; Status DC Ondansetron HCl (Zofran) 4 mg PRN Q8HRS PRN IV NAUSEA/VOMITING; Start 11/30/20 at 23:15; Stop 12/01/20 at 23:14; Status UNV Morphine Sulfate (Morphine Sulfate) 2 mg PRN Q2HR PRN IV SEVERE PAIN 7-10; St art 11/30/20 at 23:15; Stop 12/01/20 at 23:14; Status DC Acetaminophen (Tylenol) 650 mg PRN Q4HRS PRN PO FEVER > 100.3'F; Start 11/30/20 at 23:15; Stop 12/01/20 at 23:14; Status UNV Pharmacy Consult (C.diff Med Screen By Rx) 1 each 1X ONCE MC Last administered on 12/01/20at 09:00; Start 12/01/20 at 04:15; Stop 12/01/20 at 04:16; Status DC Benzonatate (Tessalon Perle) 100 mg PRN TID PRN PO COUGH-3RD CHOICE Last administered on 12/02/20at 17:07; Start 12/01/20 at 07:30 Zinc Sulfate (Orazinc) 100 mg DAILY PO Last administered on 12/02/20at 07:57; Start 12/01/20 at 09:00; Stop 12/03/20 at 09:32; Status DC Ondansetron HCl (Zofran) 4 mg PRN Q6HRS PRN IVP NAUSEA/VOMITING; Start 12/01/20 at 07:45; Stop 12/02/20 at 15:10; Status DC Al Hydroxide/Mg Hydroxide (Mylanta Plus Xs) 30 ml PRN Q3HRS PRN PO HEARTBURN / GAS; Start 12/01/20 at 07:45 Calcium Carbonate/ Glycine (Tums) 500 mg PRN Q3HRS PRN PO UPSET STOMACH; Start 12/01/20 at 07:45 Acetaminophen (Tylenol) 650 mg PRN Q6HRS PRN PO Headaches, Temp > 101.5F; S tart 12/01/20 at 07:45 Magnesium Hydroxide (Milk Of Magnesia) 2,400 mg PRN Q12HR PRN PO CONSTIPATION; Start 12/01/20 at 07:45 Bisacodyl (Dulcolax Supp) 10 mg PRN DAILY PRN [place] CONSTIPATION; Start 12/01/20 at 07:45 Enoxaparin Sodium (Lovenox 40mg Syringe) 40 mg Q24H SQ Last administered on 12/06/20at 20:31; Start 12/01/20 at 21:00 Ceftriaxone Sodium (Rocephin) 1 gm Q24H IVP Last administered on 12/04/20at 08:27; Start 12/01/20 at 09:00; Stop 12/04/20 at 09:01; Status DC Azithromycin (Zithromax) 250 mg DAILY PO Last administered on 12/04/20at 08:27; Start 12/01/20 at 09:00; Stop 12/05/20 at 08:59; Status DC Fluticasone/ Vilanterol (Breo Ellipta 100-25 Mcg) 1 puff DAILY INH Last administered on 12/07/20at 08:21; Start 12/01/20 at 09:00 Insulin Glargine (Lantus Syringe) 20 unit QHS SQ Last administered on 12/03/20at 21:36; Start 12/01/20 at 21:00; Stop 12/04/20 at 20:05; Status DC Insulin Human Lispro (HumaLOG) 10 units TIDAC SQ Last administered on 12/04/20at 16:57; Start 12/01/20 at 16:30; Stop 12/04/20 at 20:05; Status DC Insulin Human Lispro (HumaLOG) 18 units 1X ONCE SQ Last administered on 12/01/20at 13:16; Start 12/01/20 at 13:00; Stop 12/01/20 at 13:01; Status DC Sodium Chloride 500 ml @ 500 mls/hr 1X ONCE IV Last administered on 12/01/20at 13:02; Start 12/01/20 at 13:00; Stop 12/01/20 at 13:59; Status DC Lactobacillus Rhamnosus (Culturelle) 1 cap BID PO Last administered on 12/07/20at 08:20; Start 12/01/20 at 21:00 Atorvastatin Calcium (Lipitor) 20 mg QHS PO Last administered on 12/06/20at 20:31; Start 12/02/20 at 21:00 Remdesivir 200 mg/ Sodium Chloride 210 ml @ 210 mls/hr 1X ONCE IV Last administered on 12/02/20at 14:50; Start 12/02/20 at 13:00; Stop 12/02/20 at 13:59; Status DC Remdesivir 100 mg/ Sodium Chloride 230 ml @ 460 mls/hr Q24H IV Last administered on 12/06/20at 13:59; Start 12/03/20 at 13:00; Stop 12/06/20 at 13:29; Status DC Albuterol Sulfate (Ventolin Hfa) 2 puff PRN Q4HRS PRN INH WHEEZING; Start 12/02/20 at 12:30 Latanoprost (Xalatan) 1 drop QHS OU ; Start 12/02/20 at 21:00; Stop 12/02/20 at 17:14; Status DC Latanoprost (Xalatan) 1 drop QHS OS Last administered on 12/05/20at 20:43; Start 12/02/20 at 21:00 Zinc Sulfate (Orazinc) 220 mg DAILY PO Last administered on 12/07/20at 08:20; Start 12/03/20 at 10:00; Stop 12/15/20 at 09:59 Benzonatate (Tessalon Perle) 100 mg [id number] PO Last administered on 12/07/20at 08:20; Start 12/03/20 at 21:00 Guaifenesin/ Codeine Phosphate (Robitussin Ac) 5 ml PRN Q6HRS PRN PO COUGH-2ND CHOICE; Start 12/03/20 at 15:45 Loperamide HCl (Imodium) 2 mg PRN Q15MIN PRN PO DIARRHEA Last administered on 12/04/20at 11:53; Start 12/04/20 at 11:30 Insulin Glargine (Lantus Syringe) 16 unit Q12HR SQ Last administered on 12/07/20at 09:13; Start 12/04/20 at 21:00 Insulin Human Lispro (HumaLOG) 10 units TIDWMEALS SQ Last administered on 12/06/20at 17:01; Start 12/05/20 at 08:00 Dextrose (Dextrose 50%-Water Syringe) 12.5 gm PRN Q15MIN PRN IV SEE COMMENTS; Start 12/04/20 at 20:15 Fluticasone Propionate (Flonase) 2 spray DAILY NS Last administered on 12/07/20at 08:21; Start 12/05/20 at 09:00 Active Scripts Active Reported Ventolin Hfa Inhaler (Albuterol Sulfate) 18 Gm Hfa.aer.ad 2 Puff INH Q4HRS Fluticasone Propionate Nasal [place] (Fluticasone Propionate) 16 Gm [place].susp 2 [place] NS DAILY Benzonatate 100 Mg Capsule 1 Cap PO TID Xalatan (Latanoprost) 2.5 Ml Drops 1 Drop EACHEYE QHS Mucinex Fast-Max Tojn-Hdy-Byrn (Phenylephrine/Dm/Acetaminop/GG) 1 Each Capsule 1 Cap PO BID 10 Days Famotidine 40 Mg Tablet 40 Mg PO HS Actos (Pioglitazone Hcl) 15 Mg Tablet 1 Tab PO DAILY 30 Days Losartan Potassium 100 Mg Tablet 100 Mg PO DAILY Amlodipine Besylate 10 Mg Tablet 10 Mg PO DAILY Fish Oil 1,200 Mg Fish Oil (Fish Oil/Dha/Epa) 1 Each Capsule 1 Each PO Aspir 81 (Aspirin) 81 Mg Tablet.dr 1 Tab PO DAILY Atorvastatin Calcium 20 Mg Tablet 1 Tab PO DAILY Kombiglyze Xr 5-1,000 Mg Tab (Saxagliptin Hcl/Metformin Hcl) 1 Each Tbmp.24hr 1 Tab PO DAILY Vital Signs Vital Signs Date Time Temp Pulse Resp B/P (MAP) Pulse Ox O2 Delivery O2 Flow Rate FiO2 12/07/20 11:00 96.9 83 20 131/77 (95) 94 Room Air 96.9 12/07/20 03:00 2.0 Labs Laboratory Tests Test 12/05/20 14:45 12/05/20 16:44 12/06/20 05:00 12/06/20 08:13 Glucose (Fingerstick) 299 mg/dL (70-99) 328 mg/dL (70-99) 126 mg/dL (70-99) Sodium Level 141 mmol/L (136-145) Potassium Level 4.0 mmol/L (3.5-5.1) Chloride Level 108 mmol/L (98-107) Carbon Dioxide Level 26 mmol/L (21-32) Anion Gap 7 (6-14) Blood Urea Nitrogen 30 mg/dL (8-26) Creatinine 1.7 mg/dL (0.7-1.3) Estimated GFR (Cockcroft-Gault) 48.2 Glucose Level 136 mg/dL (70-99) Calcium Level 8.3 mg/dL (8.5-10.1) Total Bilirubin 0.4 mg/dL (0.2-1.0) Direct Bilirubin 0.1 mg/dL (0.0-0.2) Aspartate Amino Transf (AST/SGOT) 25 U/L (15-37) Alanine Aminotransferase (ALT/SGPT) 48 U/L (16-63) Alkaline Phosphatase 65 U/L (46-116) Total Protein 5.2 g/dL (6.4-8.2) Albumin 1.8 g/dL (3.4-5.0) Test 12/06/20 11:46 12/06/20 16:36 12/06/20 19:23 12/07/20 05:35 Glucose (Fingerstick) 238 mg/dL (70-99) 311 mg/dL (70-99) 231 mg/dL (70-99) Sodium Level 142 mmol/L (136-145) Potassium Level 3.5 mmol/L (3.5-5.1) Chloride Level 108 mmol/L (98-107) Carbon Dioxide Level 25 mmol/L (21-32) Anion Gap 9 (6-14) Blood Urea Nitrogen 26 mg/dL (8-26) Creatinine 1.6 mg/dL (0.7-1.3) Estimated GFR (Cockcroft-Gault) 51.7 Glucose Level 99 mg/dL (70-99) Calcium Level 8.1 mg/dL (8.5-10.1) Test 12/07/20 07:29 12/07/20 11:08 Glucose (Fingerstick) 108 mg/dL (70-99) 143 mg/dL (70-99) Laboratory Tests Test 12/06/20 16:36 12/06/20 19:23 12/07/20 05:35 12/07/20 07:29 Glucose (Fingerstick) 311 mg/dL (70-99) 231 mg/dL (70-99) 108 mg/dL (70-99) Sodium Level 142 mmol/L (136-145) Potassium Level 3.5 mmol/L (3.5-5.1) Chloride Level 108 mmol/L (98-107) Carbon Dioxide Level 25 mmol/L (21-32) Anion Gap 9 (6-14) Blood Urea Nitrogen 26 mg/dL (8-26) Creatinine 1.6 mg/dL (0.7-1.3) Estimated GFR (Cockcroft-Gault) 51.7 Glucose Level 99 mg/dL (70-99) Calcium Level 8.1 mg/dL (8.5-10.1) Test 12/07/20 11:08 Glucose (Fingerstick) 143 mg/dL (70-99) Allergies Allergies Coded Allergies Type Severity Reaction Last Updated Verified No Known Drug Allergies 03/12/15 No Disposition/Orders: D/C to Home Justicifation of Admission Dx: Justifications for Admission: Justification of Admission Dx: Yes Comminuty Aquired Pneumonia: Hypoxemia JIN KELLOGG MD Dec 07, 2020 12:06
[2020-12-07] MEDS ORDERED: MAGN400O7 PO (12:19)
[2020-12-07] MEDS ORDERED: ACET325T9 PO (12:19)
[2020-12-07] MEDS ORDERED: FLUT1AER2 INH (12:19)
[2020-12-07] MEDS ORDERED: ZINC220C2 PO (12:19)
[2020-12-07] MEDS ORDERED: PSYL3.4P PO (12:19)
[2020-12-07] MEDS ORDERED: DEXA4TAB63 PO (12:19)
[2020-12-07] MEDS ORDERED: DOCU-153 PO (12:19)
[2020-12-07] MEDS ORDERED: GUAI120L35 PO (12:19)
[2020-12-07] MEDS ORDERED: OLAN5TAB7 PO (12:19)
[2020-12-07] MEDS ORDERED: GUAI5SYR PO (12:19)
[2020-12-07] MEDS ORDERED: CALC200T23 PO (12:19)
[2020-12-07] MEDS ORDERED: MAG30ORA2 PO (12:19)
[2020-12-07] MEDS ORDERED: INSU100V35 SQ (12:19)
[2020-12-07] MEDS ORDERED: LACT1CAP19 PO (12:19)
[2020-12-07] MEDS ORDERED: INSU100V8 SQ (12:19)
--- NOTE | 2020-12-07 12:22 | DISCH ---
DISCHARGE INSTRUCTIONS Condition on Discharge Condition on Discharge: Stable Activity After Discharge Activity Instructions for Disc: Resume previous activity, Activity as tolerated Lifting Instructions after Dis: No heavy lifting, No pulling or pushing Exercise Instruction after Dis: Walk 10 min, 3 x per day Driving Instructions after Dis: Do not drive, Do not drive today Diet after Discharge Diet after Discharge: Cardiac, Regular Checks after Discharge Checks after discharge: Check blood press - daily Contacting the DR. after DC Call your doctor for: If your condition worsens Follow-Up Follow up with: PCP IN 3-5 DAYS Treatment/Equipment after DC Adaptive Equipment Issued: None JIN KELLOGG MD Dec 07, 2020 12:22
--- NOTE | 2020-12-07 12:59 | NUR ---
SW following for discharge planning. Spoke with RN and reviewed chart. 6 min walk indicated no home 02 needed. Pt to discharge home self-care today, 12/07. No further SW needs at this time.
--- NOTE | 2020-12-07 13:16 | NUR ---
Discharge Note: DANIEL PAULSON Discharge instructions and discharge home medications reviewed with Patient and a copy given. All questions have been answered and understanding verbalized. The following instructions and handouts were given: follow up instructions, prescription for robitussin with codeine and medication education, covid 19 discharge instructions. Discontinued lines and drains: 20 gauge left FA, tip intact, patient tolerated well. Patient discharged to home with self care via family.
== END 2020-12-07 13:40 | disposition home or self-care (01) | DRG 177 ==
LOC: ER 15:38 → ED HOLD 19:19 → 6 SOUTH 23:59
PROVIDERS: ADMIT Internal Medicine; ATTEND Internal Medicine
PROC: XW033E5 Introduction of Remdesivir Anti-infective into Peripheral Vein, Percutaneous Approach, New Technology Group 5 (ICD-10-PCS; principal; 2020-11-30)
DX: U07.1 COVID-19 (principal); J96.01 Acute respiratory failure with hypoxia; E43 Unspecified severe protein-calorie malnutrition; N17.0 Acute kidney failure with tubular necrosis; J12.82 Pneumonia due to coronavirus disease 2019; E11.65 Type 2 diabetes mellitus with hyperglycemia; E78.00 Pure hypercholesterolemia, unspecified; E78.5 Hyperlipidemia, unspecified; I10 Essential (primary) hypertension; G89.29 Other chronic pain; K21.9 Gastro-esophageal reflux disease without esophagitis; Z68.29 Body mass index [BMI] 29.0-29.9, adult; Z79.899 Other long term (current) drug therapy
CPT/HCPCS: 36415; 71045; 80048; 80053; 80076; 80307; 81001; 82962; 83036; 83605; 83735; 83880; 84145; 84443; 84484; 85025; 87040; 87493; 93005; 94618; 96365; 96372; 96375; J0456; J0696; J1100; J1644; J1650; J1815; J7040; J7050; U0003; 97535-GO; 99285-25; G0378; J7030

== ENCOUNTER 2021-11-11 09:33 | Emergency (ER) | payer OTHER, MEDICARE ==
[~2021-11-11] VITALS: Ht 185.4 cm; Wt 106.5 kg
[~2021-11-11 09:33] MED LIST changes: +ACET325T9 PO; +AMLO-187 PO; +BENZ-8 PO; +CALC200T23 PO; +DEXA4TAB63 PO; +DOCU-148 PO; +FAMO40TA4 PO; +FLUT16SP NS; +FLUT1AER2 INH; +GUAI120L35 PO; +GUAI5SYR PO; +INSU100V35 SQ; +INSU100V8 SQ; +LACT1CAP19 PO; +LATA2.5D2 EACHEYE; +LOSA100T14 PO; +MAG30ORA2 PO; +MAGN400O7 PO; +OLAN5TAB7 PO; +PHEN1CAP PO; +PIOG15TA42 PO; +PSYL3.4P PO; +VENTOLIN HFA18 GM INH; +ZINC220C2 PO
[2021-11-11] MEDS ORDERED: ORPHENADRINE CITRATE 60 MG/2 ML VIAL. IM ONE (10:00)
[2021-11-11] MEDS ORDERED: ACETAMINOPHEN 500 MG TABLET PO ONE (10:00)
[2021-11-11] MEDS ORDERED: ONDANSETRON ODT 4 MG TAB.RAPDIS. PO ONE (10:30)
[2021-11-11] MEDS ORDERED: cloNIDine HCL 0.1 MG TABLET PO ONE (10:45)
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
[2021-11-11 11:59] VITALS: BP 189/111
== END 2021-11-11 12:25 | disposition home or self-care (01) ==
LOC: ER 09:33
DX: S00.93XA Contusion of unspecified part of head, initial encounter (principal); S40.012A Contusion of left shoulder, initial encounter; I10 Essential (primary) hypertension; E78.00 Pure hypercholesterolemia, unspecified; K21.9 Gastro-esophageal reflux disease without esophagitis; E11.9 Type 2 diabetes mellitus without complications; G89.29 Other chronic pain; V49.49XA Driver injured in collision with other motor vehicles in traffic accident, initial encounter; Y93.89 Activity, other specified; Y92.488 Other paved roadways as the place of occurrence of the external cause; Y99.8 Other external cause status
CPT/HCPCS: 70450; 72125; 96372; 99285; J2360

== ENCOUNTER 2022-02-01 12:53 | Emergency (ER) | payer BC, MEDICARE, OTHER ==
[~2022-02-01] VITALS: Ht 188 cm; Wt 109.0 kg
--- NOTE | 2022-02-01 15:41 | PHYS DOC ---
Past Medical History Past Medical History: Diabetes-Type II, GERD, High Cholesterol, Hypertension, Other Additional Past Medical Histor: back pain Past Surgical History: No Surgical History Additional Past Surgical Histo: prostate Smoking Status: Never Smoker Alcohol Use: Rarely Drug Use: None Adult General Chief Complaint Chief Complaint: BLOOD SUGAR PROBLEM HPI HPI Patient is a 71 year old male who presents with an episode of low blood sugar at home. Patient states that he felt a little lightheaded and took his blood sugar, it was 67. He ate some candy and then came to the emergency room. He feels fine at this time. Denies any lightheadedness, vision changes, shortness of breath, chest pain, nausea or other abdominal complaints. Patient is on 3 oral hypoglycemic agents. He remembers the name of 1 being Jardiance but does not recall the name of the other 2. Patient was recently hospitalized for Covid and was started on Jardiance as well as one of the other oral hypoglycemics when discharge from the hospital. He does not take any insulin. Review of Systems Review of Systems Constitutional: Denies fever Eyes: Denies change in visual acuity or eye pain HENT: Denies sore throat Respiratory: Denies shortness of breath Cardiovascular: Denies chest pain GI: Denies abd pain : Denies dysuria Musculoskeletal: Denies back or extremity injury Integument: Denies rash or skin lesions Neurologic: Denies headache, focal weakness or sensory changes All other systems were reviewed and found to be within normal limits, except as documented in this note. Allergies Allergies Allergies Coded Allergies Type Severity Reaction Last Updated Verified No Known Drug Allergies 02/01/22 No Physical Exam Physical Exam Constitutional: Well developed, well nourished, no acute distress, non-toxic appearance. HENT: Normocephalic, atraumatic, bilateral external ears normal, mucosa moist, nose normal. Eyes: EOMI, conjunctiva normal, no discharge. Neck: Normal range of motion, supple, no stridor, no meningeal signs. Cardiovascular: Regular rate and rhythm Lungs & Thorax: Bilateral breath sounds clear to auscultation Abdomen: Soft, no tenderness or obvious masses Skin: Warm, dry, no erythema, no rash. Extremities: No tenderness, no cyanosis, no clubbing, ROM intact, no edema. Neurologic: Alert and oriented, normal motor function, normal sensory function, no focal deficits noted. Psychologic: Affect normal, judgement normal, mood normal. Current Patient Data Vital Signs Vital Signs Date Time Temp Pulse Resp B/P (MAP) Pulse Ox O2 Delivery O2 Flow Rate FiO2 02/01/22 13:28 98.6 92 18 152/79 (103) 95 Room Air 98.6 Lab Values Laboratory Tests Test 02/01/22 12:59 02/01/22 13:27 02/01/22 15:40 Glucose (Fingerstick) 102 mg/dL (70-99) H 118 mg/dL (70-99) H 111 mg/dL (70-99) H EKG EKG [] Radiology/Procedures Radiology/Procedures [] Course & Med Decision Making Course & Med Decision Making Pertinent Labs and Imaging studies reviewed. (See chart for details) [] Is a 71-year-old male with transient hypoglycemia. He has been observed in the ED for couple of hours and his last blood sugar is 111. We will have him discontinue his Jardiance and follow-up with his primary care physician, he is stable for discharge at this time. Dragon Disclaimer Dragon Disclaimer This electronic medical record was generated, in whole or in part, using a voice recognition dictation system. Departure Departure Impression: Primary Impression: Hypoglycemia Disposition: 01 HOME / SELF CARE / HOMELESS Condition: STABLE Referrals: FADIA CARTER MD (PCP) Patient Instructions: Hypoglycemia (Low Blood Sugar) DEDRICK BRONSON MD Feb 01, 2022 15:41
[2022-02-01 16:22] VITALS: BP 155/86
== END 2022-02-01 16:27 | disposition home or self-care (01) ==
LOC: ER 12:53
DX: E11.649 Type 2 diabetes mellitus with hypoglycemia without coma (principal); E78.00 Pure hypercholesterolemia, unspecified; K21.9 Gastro-esophageal reflux disease without esophagitis; I10 Essential (primary) hypertension
CPT/HCPCS: 82962; 99283